=== PATIENT | male | born 1975 | race Caucasian/White ===

== ENCOUNTER → 2017-11-05 11:19 | Outpatient (CLI) | payer BC, SELFPAY ==
[2017-11-05 15:59] LABS: T4 Free Direct 0.88 ng/dL (0.76-1.46); Thyroid Stim Hormone (TSH) 1.99 uIU/mL (0.358-3.74)
[2017-11-05 16:11] LABS: Hemoglobin A1c 5.2 % (4.2-6.3)
== END ==
PROVIDERS: Family Provider Family Medicine; PCP Family Medicine; Visit Provider Family Medicine
DX: F41.9 Anxiety disorder, unspecified (principal); R73.01 Impaired fasting glucose
CPT/HCPCS: 36415; 83036; 84439; 84443

== ENCOUNTER 2018-11-28 14:33 | Emergency (ER) | payer BC, SELFPAY ==
[2018-11-28 14:34] VITALS: BP 170/98; PULSE 91; PULSE 94; RESP 16; RESP 19; TEMP 36.8; O2SAT 97; BMI 43.4
[2018-11-28 14:41] VITALS: O2SAT 97
--- NOTE | 2018-11-28 14:59 | EKG12_ITS ---
Test Reason : SOB Blood Pressure : / mmHG Vent. Rate : 087 BPM Atrial Rate : 087 BPM P-R Int : 142 ms QRS Dur : 080 ms QT Int : 352 ms P-R-T Axes : 040 015 043 degrees QTc Int : 423 ms Normal sinus rhythm Normal ECG Confirmed by STEPHANIE POP, BILLY ([id number]), field map editor GISELLE MAXWELL ([id number]) on 12/01/2018 11:16:43 AM Referred By: ROCAEL Confirmed By:BILLY BROWN MD
--- NOTE | 2018-11-28 15:00 | ED.VIS.GEN ---
History of Present Illness Chief Complaint: Shortness of Breath Informant: Patient Onset: Today, Yesterday Context: Sudden Onset Timing: Intermittent Quality: Difficulty breathing through nose, dizziness Location: occurred at work Current Severity: The dizziness has resolved,. Shortness of breath has improved and read narrative Maximum Severity: Moderate Worsened by: Patient not able to attribute anything making his symptoms worse Relieved by: With regards to breathing nothing, closing eyes and putting head down dizz Associated Symptoms: Change in vision Narrative: Patient is a 43-year-old gentleman who presents with shortness of breath and dizziness. Patient's definition of shortness of breath or difficulty breathing through his nose. He reports that he was diagnosed with bronchitis and had bronchitis for 6 weeks. Patient's definition of dizziness is lightheadedness, spinning, and change in vision. Patient denied double vision. He denies nausea or vomiting with the dizziness. He denies maroon, melena or blood in stool. He reports no vomiting the last 48-72 hours. He denies headache. He denies ringing in his ears, decreased hearing or pain in his ears. He denies difficulty with speech or swallowing. He denies paresthesia, anesthesia or motor weakness upper or lower extremity. Patient's blood pressure is elevated. He apparently is been told for several years that his pressure is up and you do not want to be on blood pressure meds . Prior similar symptoms: Yes - 2014 Recent Illness/Hospitalization: No Past Medical History - Allergies and Home Meds Allergies/Adverse Reactions: Allergies amoxicillin [Amoxicillin] Allergy (Verified 11/28/18 14:37) Hives Penicillins Allergy (Verified 11/28/18 14:37) Hives Primary Care Physician: Modesto Wilks MD [Primary Care Provider] - Prior records reviewed: Yes - prior visit 2014 with similar complaints. Surgical History: no surgical history Lives: Spouse/ Significant Other, With Family Smoking Status: Never smoker Drugs: None Review of Systems Eyes: Reports: Visual changes - bilaterally. Denies: Blurred vision - left, Blurred vision - right, Blurred Vision - bilaterally, Diplopia, -, - ENT: Denies: Bilateral ear pain, Rhinorrhea, Sore throat Cardiovascular: Denies: Chest pain, Palpitations Respiratory: Reports: Dyspnea. Denies: Cough, Dyspnea on exertion, Orthopnea, Paroxysmal nocturnal dyspnea Gastrointestinal: Denies: Abdominal pain, Nausea, Vomiting, Diarrhea, Melena, Hematochezia Musculoskeletal: Denies: Myalgias, Arthralgias, Neck pain, Back pain, Extremity Pain Skin: Denies: Rash, Wounds Neurological: Denies: Headache, Weakness, Parasthesia, Numbness Endocrine: Denies: Polyuria, Polydipsia Physical Exam Vital Signs/Narrative: Vital Signs Temp Pulse Resp BP Pulse Ox 11/28/18 14:34 98.3 F 94 19 H 170/98 H 97 Inital Vital Signs reviewed: Yes General: Well nourished, Well developed, Obese - BMI is 43.4., No Acute Distress Head: Normocephalic, Atraumatic Eyes: Perrl, EOMI, - - Funduscopic exam reveals normal cup-to-disc ratio. There is no papilledema. There is AV nicking noted.. Negative for: Pale conjunctiva, Scleral icterus ENT: Moist mucous membranes, No rhinorrhea, TM's clear, - - Nasal mucosa is pale and grayish consistent with allergic rhinitis. Neck: Supple, Nontender, No lymphadenopathy, No JVD - No carotid bruits noted. Trachea is midline. Cardiovascular: Regular rate, Regular rhythm, No murmurs, Normal S1, Normal S2 Respiratory: No distress, CTA bilaterally, Chest nontender Abdomen: Soft, Nontender, Nondistended, Normal bowel sounds Back: Nontender, Normal Inspection Extremities: Nontender, No edema. Negative for: Calf Tenderness Skin: Normal color, No rash Neurological: Alert, Oriented x3, Cranial nerves II-XII grossly intact, Normal Strength, Normal Sensation, Normal DTR - DTRs are 1+ upper and lower extremity and symmetric. There is no clonus or Babinski sign. Richmond-Hallpike maneuver was negative. The eye Katherine test was negative. The HINT test is negative. Psychological: Normal affect Diagnostic/Tx/Re-eval Laboratory Results 11/28/18 11/28/18 11/28/18 15:20 15:20 15:25 WBC 8.9 RBC 5.33 Hgb 15.9 Hct 45.3 MCV 85.0 MCH 29.8 MCHC 35.1 RDW 13.9 RDW Differential 43.0 Plt Count 210 MPV 11.6 Immature Gran % (Auto) 0.100 Neut % (Auto) 57.2 Lymph % (Auto) 29.3 [place] % (Auto) 10.2 H Eos % (Auto) 3.0 Baso % (Auto) 0.2 Absolute Neuts (auto) 5.1 Absolute Lymphs (auto) 2.61 Total Counted Not Reportable Sodium 138 Potassium 3.7 Chloride 105 Carbon Dioxide 28.0 Anion Gap 5 BUN 12 Creatinine 0.94 Estim Creat Clear Calc 110.15 Est GFR (MDRD) Af Amer 113 Est GFR (MDRD) Non-Af 93 BUN/Creatinine Ratio 12.7 Glucose 90 Calcium 8.6 Urine Color Yellow Urine Clarity Sl. Cloudy Urine pH 6.5 Ur Specific [place] 1.015 Urine Protein Negative Urine Glucose (UA) Normal Urine Ketones Negative Urine Occult Blood Negative Urine Nitrite Negative Urine Bilirubin Negative Urine Urobilinogen Normal Ur Leukocyte Esterase Negative Urine RBC 0 SEEN Urine WBC 0 SEEN Ur Squamous Epith Cells 0-5 SEEN Urine Bacteria 0 SEEN Urine Mucus 0 SEEN - EKG Initial EKG Interpretation: Sinus Rhythm - Ventricular rate is 87. NM interval, Q jewish, QT interval and axis are normal. - Medical Decision Making Based on patient's history of spinning, change in vision and improvement with closing eyes and resting head and remaining still suspect patient had paroxysmal benign positional vertigo at work x2. Because of the elevated blood pressure and AV nicking noted on funduscopic exam will obtain blood work to assess for endorgan injury. EKG was obtained per protocol which reveals a normal sinus rhythm with a ventricular rate of 87 and no evidence of LVH. Since there is no evidence of endorgan injury will discharge with prescription for lisinopril. He has been instructed to follow-up with his primary care physician for blood pressure check in 2 weeks. ED Disposition - Plan for ED Patient: Disposition: Home or Assisted Living Diagnosis: Hypertension, benign, Allergic rhinitis, Benign paroxysmal positional vertigo Instructions: ED Hypertension New Begin Tx, ED Allergy Nasal Prescriptions: Lisinopril 5 mg PO DAILY #30 tab Fluticasone 0.05% [Flonase Nasal [place]] 1 spray NASAL BID #1 bottle Referrals: Modesto Wliks MD [Primary Care Provider] - 1-2 Weeks
[2018-11-28 15:29] LABS: Absolute Lymphocyte Count 2.61 X10^3/ul (0.83-4.51); Absolute Neutrophil Count 5.1 X10^3/uL (2.0-7.7); Basophil# 0.02 X10^3/uL; Basophil% 0.2 % (0-1); Eosinophil# 0.27 X10^3/uL; Hematocrit 45.3 % (40-54); Hemoglobin 15.9 g/dl (13.0-16.5); Lymphocyte # 2.61 X10^3/ul (4.0); Lymphocyte % 29.3 % (19-41); Mean Corp Hgb Conc 35.1 g/gl (32-36); Mean Corpuscular Hgb 29.8 pg (27.0-32.0); Mean Platelet Vol. 11.6 fl (6.2-12.0); Monocyte# 0.91 X10^3/uL; Monocyte% 10.2 % (0-10); Neutrophil # 5.08 X10^3/uL (2.7-7.7); Neutrophil % 57.2 % (47-70); Platelet Count 210 K/mm3 (150-450); RBC Distribution Width CV 13.9 % (11.6-14.6); Red Blood Count 5.33 M/mm3 (4.6-6.2); White Blood Count 8.9 K/mm3 (4.4-11.0)
[2018-11-28 15:32] LABS: POSITIVE COUNT NO; POSITIVE DIFFERENTIAL NO; POSITIVE MORPHOLOGY NO
[2018-11-28 15:37] LABS: Bacteria 0 SEEN /hpf (None Seen); Mucous, Urine 0 SEEN /hpf (<or=2+); Red Blood Cells-Urine 0 SEEN /hpf (0-5); White Blood Cells 0 SEEN /hpf (0-5)
[2018-11-28 15:41] LABS: Anion Gap 5 (5-15); BUN 12 mg/dL (7-18); BUN/Creat Ratio 12.7 RATIO (10-20); Calcium,Total 8.6 mg/dL (8.5-10.1); Chloride 105 mmol/L (98-107); Creatinine, Serum 0.94 mg/dL (0.70-1.30); EST Glomerular Filtration Rate 93 mL/min (>60); Est Glom Filt Rate - Afr Amer 113 mL/min (>60); Estimated Creatinine Clearance 110.15 ml/min; Glucose 90 mg/dL (74-106); Potassium 3.7 mmol/L (3.5-5.1); Sodium Level 138 mmol/L (136-145)
[2018-11-28 16:02] LABS: Color, Urine Yellow (Yellow); Glucose, Dipstick Normal (Normal); Ketone-Dipstick Negative (Negative); Leukocyte Esterase-Dipstick Negative /ul (Negative); Nitrite-Dipstick Negative (Negative); Occult Blood-Urine Negative /ul (Negative); Protein-Dipstick Negative (Negative); Specific Gravity, Urine 1.015 (1.002-1.030); Urine Bilirubin Dipstick Negative (Negative); Urine Clarity Sl. Cloudy (Clear); Urine Urobilinogen Normal (Normal); Urine pH 6.5 (5.0 - 8.0)
[2018-11-28 16:06] LABS: Squamous Epithelial Cells - UA 0-5 SEEN /hpf (0-5)
[2018-11-28 16:24] VITALS: BP 133/86; PULSE 84; RESP 16; O2SAT 96
[2018-11-28 17:06] VITALS: BP 125/79; PULSE 80; RESP 25; O2SAT 98
== END 2018-11-28 17:06 | disposition home or self-care (01) ==
PROVIDERS: Emergency Provider Emergency Medicine; Family Provider Family Medicine; PCP Family Medicine
DX: I10 Essential (primary) hypertension (principal); J30.9 Allergic rhinitis, unspecified; H81.10 Benign paroxysmal vertigo, unspecified ear
CPT/HCPCS: 80048; 81001; 85025; 93005; 99284; A4216

== ENCOUNTER 2019-03-09 22:17 | Emergency (ER) | payer BC, SELFPAY ==
[2019-03-09 22:17] VITALS: BP 135/81; PULSE 119; RESP 18; TEMP 37.8; O2SAT 97; BMI 42.2
[2019-03-09 22:46] LABS: Absolute Lymphocyte Count 0.86 X10^3/ul (0.83-4.51); Absolute Neutrophil Count 3.1 X10^3/uL (2.0-7.7); Basophil# 0.02 X10^3/uL; Basophil% 0.4 % (0-1); Eosinophil# 0.03 X10^3/uL; Eosinophils% 0.7 % (0-5); Hematocrit 39.2 % (40-54); Hemoglobin 13.8 g/dl (13.0-16.5); Lymphocyte # 0.86 X10^3/ul (4.0); Lymphocyte % 18.9 % (19-41); Mean Corp Hgb Conc 35.2 g/gl (32-36); Mean Corpuscular Hgb 27.8 pg (27.0-32.0); Monocyte# 0.55 X10^3/uL; Monocyte% 12.1 % (0-10); Neutrophil # 3.06 X10^3/uL (2.7-7.7); Neutrophil % 67.5 % (47-70); Platelet Count 205 K/mm3 (150-450); RBC Distribution Width SD 39.7 fl (35.1-43.9); Red Blood Count 4.96 M/mm3 (4.6-6.2); White Blood Count 4.5 K/mm3 (4.4-11.0)
[2019-03-09 22:53] LABS: POSITIVE COUNT NO; POSITIVE DIFFERENTIAL NO; POSITIVE MORPHOLOGY NO
[2019-03-09 22:59] LABS: Anion Gap 6 (5-15); BUN 9 mg/dL (7-18); Calcium,Total 8.6 mg/dL (8.5-10.1); Chloride 97 mmol/L (98-107); Creatinine, Serum 1.13 mg/dL (0.70-1.30); EST Glomerular Filtration Rate 76 mL/min (>60); Est Glom Filt Rate - Afr Amer 92 mL/min (>60); Glucose 122 mg/dL (74-106); Potassium 3.6 mmol/L (3.5-5.1); Sodium Level 130 mmol/L (136-145)
[2019-03-09 23:19] LABS: Bacteria 0 SEEN /hpf (None Seen); Mucous, Urine 0 SEEN /hpf (<or=2+); Red Blood Cells-Urine 0 SEEN /hpf (0-5); Squamous Epithelial Cells - UA 0 SEEN /hpf (0-5); White Blood Cells 0 SEEN /hpf (0-5)
[2019-03-09 23:24] VITALS: BP 133/73; PULSE 111; RESP 18; TEMP 37.4; O2SAT 97
[2019-03-09 23:25] LABS: Color, Urine Yellow (Yellow); Glucose, Dipstick Normal (Normal); Ketone-Dipstick Negative (Negative); Leukocyte Esterase-Dipstick Negative /ul (Negative); Nitrite-Dipstick Negative (Negative); Occult Blood-Urine Negative /ul (Negative); Protein-Dipstick Negative (Negative); Urine Bilirubin Dipstick Negative (Negative); Urine Clarity Clear (Clear); Urine Urobilinogen Normal (Normal); Urine pH 6.5 (5.0 - 8.0)
[2019-03-09 23:42] LABS: Transitional Epithelial - Ur 0-5 SEEN /hpf (0-5)
--- NOTE | 2019-03-10 00:16 | CT_ITS ---
STUDY: CT ABDOMEN AND PELVIS WITH CONTRAST REASON FOR EXAM: Male, 44 years old. Abdomen pain. Diarrhea RADIATION DOSAGE (If Supplied By Facility): CTDIvol = ( 20.40 ) mGy, DLP = ( 1382.61 ) mGycm TECHNIQUE: Transaxial images were obtained from the dome of the diaphragm to the symphysis pubis without oral contrast. 100 IV Isovue 300 was administered. Sagittal and coronal images were reconstructed. Individualized dose optimization techniques were used for this CT. COMPARISON: None. FINDINGS: The visualized lung bases are unremarkable. The visualized portions of the heart are within normal limits. Normal liver. Normal gallbladder and extrahepatic biliary system. Normal spleen. Normal pancreas. Normal bilateral adrenal glands. Normal right kidney. Normal left kidney. Normal visualized stomach. Normal small intestine. There are multiple colonic diverticula consistent with diverticulosis. The appendix is visualized and appears normal. Normal abdominal aorta. Normal inferior vena cava. Normal retroperitoneum. Normal urinary bladder. There is a small umbilical hernia containing fat. Normal osseous structures. CT/Abdomen/Pelvis WITH Contrast IMPRESSION: Colon diverticulosis. Electronically Signed: Rama Perry, at 3:05 EDT Tel , Service support ,
--- NOTE | 2019-03-10 00:17 | ED.DCSUM_ITS ---
- ER Visit Summary Date of Service: 03/10/19 Chief Complaint: Fever History of Present Illness: The patient is a 44 M who presents with a fever. This been about 1-1/2 weeks ever since March 01. He has had temperatures of 103 and sweats. He also complains of diffuse body aches. He complains of mild headache. Complains of nausea dry heaving and diarrhea. He also has had some mild intermittent vague lower abdominal pain. He does not have this currently. He has seen his primary care physician and also been seen in urgent care. He had a normal chest x-ray. It sounds like his symptoms were attributed to a self-limiting illness. However he has not been improving and today also developed a rash over his body and lower back. Physical Examination: Heart rate 111 temperature 99.3 Moist mucous membranes Heart regular tachycardia Lungs clear Abdomen soft nontender nondistended Alert Patient has a macular rash over the torso extremities and back blanching, no petechiae no purpura rash is nonspecific Test Results: CBC CMP lipase notable for mild elevations of ALT at 93 and AST at 69. Urinalysis normal. Sodium 130. Acetaminophen 4.5. CT of the abdomen and pelvis shows colonic diverticulosis. Emergency Department Course and Treatment: Work-up as above. Although CT does not show inflammatory changes given that he does have diverticulosis with diarrhea lower abdominal pain and fever we will treat for possible diverticulitis. He was given prescriptions for Cipro and Flagyl. I explained to him I am unsure of the etiology of his rash. Do not see an indication for hospitalization. I did advise that if he does not improve he may need further outpatient work-up. He understands to return for new or worsening symptoms and was instructed on signs and symptoms to monitor for. Treatment Plan: [] Disposition: Discharge Impression: Diverticulitis This note was generated with ThermalTherapeuticSystems[employer] software. It may contain incorrect words, spelling, and punctuation that were not noted in review of the chart prior to signing ED Disposition - Plan for ED Patient: Referrals: Modesto Wilks MD [Primary Care Provider] -
[2019-03-10 00:39] LABS: AST(SGOT) 62 U/L (15-37); Alanine Aminotransfer ALT/SGPT 93 U/L (16-61); Albumin, Serum 3.2 g/dL (3.2-5.0); Alkaline Phosphatase 87 U/L (45-117); Bilirubin, Direct 0.23 mg/dL (0.00-0.30); Globulin 3.6 g/dL (2.2-4.2); Protein, Total 6.8 g/dL (6.4-8.2)
[2019-03-10 00:42] LABS: Lipase 102 U/L (73-393)
[2019-03-10 01:12] LABS: Acetaminophen (Tylenol) Level 4.5 ug/mL (10.0-30.0)
[2019-03-10 01:18] VITALS: BP 128/73; PULSE 94; RESP 20; TEMP 37.4; O2SAT 99
[2019-03-10 02:00] VITALS: BP 124/67; PULSE 87; RESP 19; TEMP 36.8; O2SAT 97
[2019-03-10 03:00] VITALS: BP 130/78; PULSE 83; RESP 19; TEMP 36.9; O2SAT 96
[2019-03-10 03:23] VITALS: BP 132/76; PULSE 76; RESP 18; O2SAT 95
--- NOTE | 2019-03-10 03:39 | ED.DEP ---
ED Disposition - Plan for ED Patient: Instructions: Diverticulitis Prescriptions: Ciprofloxacin [Cipro] 500 mg PO BID #20 tab Prescription Printed metroNIDAZOLE [Flagyl] 500 mg PO Q8H #28 tab Prescription Printed Referrals: Modesto Wilks MD [Primary Care Provider] -
[2019-03-10 03:44] VITALS: BP 130/85; PULSE 84; RESP 16; O2SAT 99
== END 2019-03-10 03:44 | disposition home or self-care (01) ==
PROVIDERS: Emergency Provider Emergency Medicine; Family Provider Family Medicine; PCP Family Medicine
DX: K57.32 Diverticulitis of large intestine without perforation or abscess without bleeding (principal); R21 Rash and other nonspecific skin eruption; R51 Headache
CPT/HCPCS: 74177; 80048; 80076; 80329; 81001; 83690; 85025; 87040; 99283; Q9967; G0480

== ENCOUNTER → 2019-11-17 12:57 | Outpatient (CLI) | payer BC, SELFPAY ==
--- NOTE | 2019-11-17 13:18 | RAD_ITS ---
STUDY: X-RAY CHEST REASON FOR EXAM: Male, 44 years old. SOB, CP. HX PNEUMONIA TECHNIQUE: PA and lateral views of the chest. COMPARISON: None. FINDINGS: The lungs are clear and expanded. Scattered calcified granulomas. There is no demonstrated pleural abnormality. Normal size heart. Normal mediastinum and ashlie. Normal visualized pulmonary arteries. Normal visualized aortic arch and descending thoracic aorta. Normal visualized thoracic spine. Normal visualized ribs, clavicles, and shoulders. There is no demonstrated abnormality of the visualized soft tissue structures of the upper abdomen. RAD/Chest PA and Lateral IMPRESSION: Scattered calcified granulomas. No acute abnormality is seen. Electronically Signed: Leo Mandel, at 13:48 EDT , Service support ,
== END ==
PROVIDERS: PCP Family Medicine; Referring Provider Family Medicine; Visit Provider Family Medicine
DX: R06.02 Shortness of breath (principal); R07.9 Chest pain, unspecified
CPT/HCPCS: 71046

== ENCOUNTER → 2020-05-19 10:34 | Outpatient (CLI) | payer BC, SELFPAY | PROVIDERS: PCP Family Medicine; Referring Provider Family Medicine; Visit Provider Family Medicine | DX: R05 Cough (principal) | CPT/HCPCS: 87635; C9803; U0003 ==

== ENCOUNTER → 2020-07-20 09:05 | Outpatient (CLI) | payer BC, SELFPAY | PROVIDERS: PCP Family Medicine; Referring Provider Family Medicine; Visit Provider Family Medicine | DX: Z03.818 Encounter for observation for suspected exposure to other biological agents ruled out (principal) | CPT/HCPCS: 87635; C9803; U0003 ==

== ENCOUNTER → 2020-08-12 17:37 | Outpatient (CLI) | payer BC, SELFPAY | PROVIDERS: PCP Family Medicine; Referring Provider Family Medicine; Visit Provider Family Medicine | DX: Z20.828 Contact with and (suspected) exposure to other viral communicable diseases (principal) | CPT/HCPCS: 87635; C9803; U0003 ==

== ENCOUNTER → 2020-09-14 09:34 | Outpatient (CLI) | payer BC, SELFPAY | PROVIDERS: PCP Family Medicine; Visit Provider Family Medicine | DX: N39.0 Urinary tract infection, site not specified (principal) | CPT/HCPCS: 87086 ==

== ENCOUNTER → 2020-10-31 14:39 | Outpatient (CLI) | payer OTHER, SELFPAY ==
[2020-10-31 17:21] LABS: Absolute Neutrophil Count 4.5 X10^3/uL (2.0-7.7); Basophil# 0.03 X10^3/uL; Basophil% 0.4 % (0-1); Eosinophil# 0.07 X10^3/uL; Eosinophils% 0.9 % (0-5); Hematocrit 51.5 % (40-54); Hemoglobin 16.9 g/dL (13.0-16.5); Mean Corp Hgb Conc 32.8 g/dL (32-36); Mean Corpuscular Hgb 28.2 pg (27.0-32.0); Mean Platelet Vol. 12.9 fl (6.2-12.0); Monocyte# 0.65 X10^3/uL; Monocyte% 8.2 % (0-10); NRBC Flagged by Analyzer 0 % (0-5); Neutrophil # 4.47 X10^3/uL (2.7-7.7); Neutrophil % 56.4 % (47-70); Platelet Count 257 K/mm3 (150-450); RBC Distribution Width CV 13.4 % (11.6-14.6); RBC Distribution Width SD 42.3 fl (35.1-43.9); Red Blood Count 5.99 M/mm3 (4.6-6.2); White Blood Count 7.9 K/mm3 (4.4-11.0)
[2020-10-31 17:28] LABS: Hemoglobin A1c 4.8 % (3.8-5.6)
[2020-10-31 17:35] LABS: ALB/GLOB Ratio 1.1 RATIO (0.9-2.4); AST(SGOT) 21 U/L (15-37); Alanine Aminotransfer ALT/SGPT 41 U/L (16-61); Alkaline Phosphatase 88 U/L (45-117); Anion Gap 4 (5-15); BUN 12 mg/dL (7-18); BUN/Creat Ratio 12.2 RATIO (10-20); Calcium,Total 8.7 mg/dL (8.5-10.1); Chloride 105 mmol/L (98-107); Creatinine, Serum 0.98 mg/dL (0.70-1.30); EST Glomerular Filtration Rate 88 mL/min (>60); Est Glom Filt Rate - Afr Amer 106 mL/min (>60); Globulin 3.5 g/dL (2.2-4.2); Glucose 71 mg/dL (74-106); Protein, Total 7.5 g/dL (6.4-8.2); Sodium Level 139 mmol/L (136-145); Thyroid Stim Hormone (TSH) 1.88 uIU/mL (0.358-3.74)
== END ==
PROVIDERS: PCP Family Medicine; Visit Provider Family Medicine
DX: I10 Essential (primary) hypertension (principal); R73.01 Impaired fasting glucose; F41.9 Anxiety disorder, unspecified
CPT/HCPCS: 36415; 80053; 83036; 84443; 85025

== ENCOUNTER → 2020-12-08 09:06 | Outpatient (CLI) | payer OTHER, SELFPAY | PROVIDERS: PCP Family Medicine; Visit Provider Family Medicine | DX: R00.2 Palpitations (principal); I10 Essential (primary) hypertension; F41.9 Anxiety disorder, unspecified | CPT/HCPCS: 93225; 93226 ==

== ENCOUNTER 2021-10-05 11:00 | Outpatient (CLI) | payer OTHER, SELFPAY | END 2021-10-05 23:59 | disposition home or self-care (01) | PROVIDERS: PCP Family Medicine; Referring Provider Family Medicine; Visit Provider Family Medicine | DX: G47.10 Hypersomnia, unspecified (principal); R06.83 Snoring | CPT/HCPCS: 95806 ==

== ENCOUNTER → 2021-12-14 | Outpatient (CLI) | payer OTHER, SELFPAY ==
--- NOTE | 2021-12-14 15:31 | MRI_ITS ---
EXAM: MR HEAD WITHOUT AND WITH INTRAVENOUS CONTRAST, INTERNAL AUDITORY CANAL PROTOCOL CLINICAL INDICATION: HEARING LOSS, TINNITUS LEFT EAR TECHNIQUE: Multiplanar and multisequence MR images of the internal auditory canal were obtained without and with intravenous contrast. Magnetic field strength 1.5 T. This report was created using [employer] report generation technology. CONTRAST: IV 25CC DOTAREM COMPARISON: None. FINDINGS: CRANIAL NERVES: Unremarkable. No mass. No abnormal enhancement. COCHLEA AND SEMICIRCULAR CANALS: Unremarkable. CEREBELLOPONTINE ANGLES: Unremarkable. No mass. BRAIN AND EXTRA-AXIAL SPACES: Unremarkable as visualized. No intra- or extra-axial hemorrhage. No intracranial mass or mass effect. There is preservation of the isbell/white matter interface. Posterior fossa structures are unremarkable. Ventricles are appropriate for age. No hydrocephalus. Basal cisterns are patent. BONES/JOINTS: Unremarkable. No discrete lytic or blastic abnormalities. SINUSES: Small retention cyst left maxillary sinus. MASTOID AIR CELLS: Unremarkable as visualized. Clear. ORBITS: Unremarkable as visualized. Both globes, extraocular muscles, optic nerves and retrobulbar fat appear unremarkable. MRI/Brain W/WO Contrast IMPRESSION: No acute findings in the internal auditory canal. Electronically Signed: Miko George MD at 4:03 EDT ,
== END | disposition home or self-care (01) ==
PROVIDERS: PCP Family Medicine; Visit Provider Otolaryngology Otolaryngology/Facial Plastic Surgery
DX: H91.90 Unspecified hearing loss, unspecified ear (principal)
CPT/HCPCS: 70553; A9575

== ENCOUNTER → 2021-12-28 | Outpatient (CLI) | payer OTHER, SELFPAY | END | disposition home or self-care (01) | LOC: SL 10:12 | PROVIDERS: PCP Family Medicine; Visit Provider Family Medicine | DX: Z00.00 Encounter for general adult medical examination without abnormal findings (principal) ==

== ENCOUNTER 2023-06-18 11:45 | Outpatient (CLI) | payer OTHER, SELFPAY | END 2023-06-18 23:59 | disposition home or self-care (01) | LOC: LAB 11:47 | PROVIDERS: PCP Family Medicine; Referring Provider Urology; Visit Provider Urology | DX: Z12.5 Encounter for screening for malignant neoplasm of prostate (principal) | CPT/HCPCS: 36415; 84153; G0103 ==

== ENCOUNTER → 2023-09-25 | Outpatient (CLI) | payer BC, SELFPAY ==
--- OUTSIDE RECORDS SUMMARY | 2023-09-25 12:15 | XMS RPT_ITS | CCD ---
Author Name Unknown Address [address] [place] [address] [address] [address] [place] [id number] Organization [facility] Care Team Providers Care Api Architect Name Role Phone MERON SHETTY Primary Care Unavailable JAVON CAMERON Referring Unavailable MERON SHETTY Primary Care Unavailable Allergies Allergy Classification Reported Allergen(s) Allergy Type Date of Onset Reaction(s) Facility (1 source) Penicillins; Translations: [PENICILLINS] Propensity to adverse reactions to drug (disorder) 0 [facility] Repository Problems Problem Classification Problem Date Documented Da te Episodic/Chronic Other connective tissue disease (1 source) Pain in left leg; Translations: [Leg pain, left] Onset: 09-23-2023 Episodic Results Test Name Value Interpretation Reference Range Facil ity Encounters Encounter Date Encounter Type Care Provider Facility Start: 09-23-2023 End: 09-23-2023 ambulatory MERON SHETTY Facility:[facility] Start: 09-23-2023 End: 09-23-2023 ambulatory MERON SHETTY Facility:[facility] Payers Date Payer Category Payer Unknown [id number] Progress note 09-23-2023 Note Date & Type Note Facility 09-23-2023 Note HNO ID: [id number] Author: JAVON FRAUSTO RDMS Service: ? Author Type: Route Specialist Type: Progress Notes Filed: 09/23/2023 14:51 Note Text: Radiology Service Progress Note PATIENT NAME: Mindi Mead DATE OF SERVICE: September 23, 2023 TIME: 2:50 PM PATIENT IDENTITY VERIFICATION COMPLETED USING TWO (2) IDENTIFIERS: Name and Date of confirmed by patient verbally. FALL SCREENING: Has the patient had 2 falls in the last year or 1 fall with injury or currently using an Ambulatory Assistive Device (Walker, Cane, Wheelchair, Crutches, etc.)? No PATIENT GENDER DATA: Male PATIENT RELEVANT IMPLANT DATA REVIEWED: Not Applicable PATIENT PRESENTS WITH AN IMPLANTABLE OR ATTACHED GLUE LINE OPERATOR: No RADIOLOGY DEPARTMENT: Ultrasound PERIPHERAL IV DATA: Not applicable SIGNED BY: Javon Frausto RDMS RVT September 23, 2023 2:50 PM [facility] Progress note 09-23-2023 Note Date & Type Note Facility 09-23-2023 Note HNO ID: [id number] Author: JAVON CAMERON APRN.LAYOUT ARTIST Service: ? Author Type: Nurse Practitioner Type: Progress Notes Filed: 09/23/2023 15:36 Note Text: This note was created using [employer]. Subjective Mindi Mead is a 48 year old male. 48 year old male with PMH of GERD, anxiety and urinary frequency presents today with acute onset left calf pain. He was walking up the stairs and suddenly felt like his left calf was going to give out. Has since been experiencing 9/10 sharp left calf pain with movement. Pertinent positives include unilateral calf pain with movement and states pants are tighter on that leg. Pertinent negatives include injury or trauma to lower extremity, fever, body aches, skin color changes, dyspnea, chest pain, and dizziness. States he is physically active at this job and denies recent sedentary lifestyle, recent travel, and history of blood clots. Musculoskeletal Problem This is a new problem. The current episode started today. The problem occurs intermittently (with movement). The problem has been unchanged. Pertinent negatives include no arthralgias, chest pain, chills, fever, joint swelling, numbness, rash, visual change or weakness. The symptoms are aggravated by walking. He has tried nothing for the symptoms. No past medical history on file. PAST SURGICAL HISTORY Procedure Laterality Date TONSILLECTOMY HX ALLERGIES Penicillins MEDICATIONS citalopram (CELEXA) 40 mg tablet take 1 tablet by mouth once daily at night oxybutynin ER (DITROPAN XL) 15 mg 24 hr Extended Rel Tab Take 15 mg by mouth once daily. multivit-min/ferrous fumarate (MULTI VITAMIN ORAL) Take by mouth. famotidine (PEPCID) 20 mg tablet Take 20 mg by mouth twice daily. fexofenadine HCl (BIRGIT ORAL) Take by mouth. predniSONE (DELTASONE) 10 mg tablet Take 4 tabs daily for 3 days, then 2 tabs daily for 3 days, then 1 tab daily for 3 days with food. cyclobenzaprine (FLEXERIL) 10 mg tablet Take 1 tablet by mouth three times a day as needed for muscle spasm. lisinopril (ZESTRIL, PRINIVIL) 5 mg tablet Take 5 mg by mouth once daily. (Patient not taking: Reported on 02/15/2021 ) Chlorhexidine Gluconate (PERIDEX) 0.12 % solution Use 15 mL as instructed twice daily. Rinse around mouth for 30 seconds then expectorate (Patient not taking: Reported on 05/25/2021 ) naproxen (NAPROSYN) 500 mg tablet Take 1 tablet by mouth twice daily as needed (pain/inflammation, take with food.). (Patient not taking: Reported on 05/25/2021 ) fluticasone (FLONASE) 50 mcg/actuation nasal spray Use 2 Sprays in each nostril once daily. Rinse mouth after use. (Patient not taking: Reported on 02/15/2021 ) benzonatate (TESSALON PERLE) 100 mg capsule Take 2 capsules by mouth three times daily as needed. (Patient not taking: Reported on 03/02/2019 ) Qgitowiewrgkmxb-Utjufonec-IN (BROMFED DM) 2-30-10 mg/5 mL syrup Take 10 mL by mouth four times daily as needed. (Patient not taking: Reported on 09/07/2018 ) albuterol HFA (VENTOLIN HFA) 90 mcg/actuation inhaler Inhale 2 Puffs as instructed every 4 hours as needed for Wheezing/Shortness of Breath. (Patient not taking: Reported on 03/02/2019 ) triamcinolone acetonide (KENALOG) 0.1 % cream Apply 1 application to affected area twice daily. (Patient not taking: Reported on 05/27/2018 ) sertraline (ZOLOFT) 50 mg tablet Take 1 tablet by mouth once daily. (Patient not taking: Reported on 05/27/2018 ) LORazepam (ATIVAN) 0.5 mg tab Take 0.5 tablets by mouth once daily as needed. (Patient not taking: Reported on 05/27/2018 ) FAMILY HISTORY Problem Relation Age of Onset Arthritis Mother None Father None Sister Social History Tobacco Use Smoking status: Never Smokeless tobacco: Never Substance Use Topics Alcohol use: No Drug use: No Review of Systems Constitutional: Positive for activity change. Negative for appetite change, chills and fever. Respiratory: Negative for chest tightness and shortness of breath. Cardiovascular: Positive for leg swelling. Negative for chest pain. Musculoskeletal: Negative for arthralgias and joint swelling. Skin: Negative for color change and rash. Neurological: Negative for dizziness, weakness, light-headedness and numbness. Objective BP 148/102 Pulse 105 Temp 36.9 ?C (98.4 ?F) Resp 20 Wt (!) 143.1 kg (315 lb 6.4 oz) SpO2 98% Physical Exam Constitutional: General: He is awake. He is not in acute distress. Appearance: Normal appearance. He is normal weight. He is not ill-appearing, toxic-appearing or diaphoretic. HENT: Head: Normocephalic. Cardiovascular: Rate and Rhythm: Normal rate. Pulmonary: Effort: Pulmonary effort is normal. No tachypnea, bradypnea, accessory muscle usage, prolonged expiration or respiratory distress. Musculoskeletal: General: Tenderness present. No swelling, deformity or signs of injury. Normal range of motion. Cervical back: Normal range of motion. Right (more content not included)... [facility] Summary Purpose Family History No Family History Records Found Advance Directives No Advanced Directives Records Found Additional Source Comments (unrecognized sect ion and content) No Status Records Found INFORMATION SOURCE (unrecogn ized section and content) FOR RECORDS PERTAINING TO PATIENTS WHO ARE OR HAVE BEEN ENROLLED IN A CHEMICAL DEPENDENCY/SUBSTANCEABUSE PROGRAM, SOME INFORMATION MAY BE OMITTED. This clinical summary was aggregated from multiple sources. Caution should be exercised in using it in the provision of clinical care. This summary normalizes information from multiple sources, and as a consequence, information in this document may materially change the coding, format and clinical context of patient data. In addition, data may be omitted in some cases. CLINICAL DECISIONS SHOULD BE BASED ON THE PRIMARY CLINICAL RECORDS. [employer] provides no warranty or guarantee of the accuracy or completeness of information in this document.
[2023-09-25 12:31] LABS: Absolute Lymphocyte Count 2.16 X10^3/uL (0.83-4.51); Basophil# 0.04 X10^3/uL; Basophil% 0.6 % (0-1); Eosinophils% 4.2 % (0-5); Hematocrit 46.9 % (40-54); Hemoglobin 15.5 g/dL (13.0-16.5); Lymphocyte # 2.16 X10^3/ul (0.83-4.51); Lymphocyte % 30.2 % (19-41); Mean Corpuscular Hgb 28.7 pg (27.0-32.0); Mean Corpuscular Volume 86.9 fL (80-94); Mean Platelet Vol. 11.7 fl (6.2-12.0); Monocyte# 0.63 X10^3/uL; Monocyte% 8.8 % (0-10); NRBC Flagged by Analyzer 0 % (0-5); Neutrophil # 3.99 X10^3/uL (2.7-7.7); Neutrophil % 55.8 % (47-70); Platelet Count 211 K/mm3 (150-450); RBC Distribution Width CV 13.6 % (11.6-14.6); RBC Distribution Width SD 42.7 fl (35.1-43.9); White Blood Count 7.2 K/mm3 (4.4-11.0)
[2023-09-25 12:57] LABS: AST(SGOT) 23 U/L (15-37); Alanine Aminotransfer ALT/SGPT 42 U/L (16-61); Albumin, Serum 3.7 g/dL (3.2-5.0); Alkaline Phosphatase 80 U/L (45-117); Anion Gap 3 (5-15); BUN 19 mg/dL (7-18); BUN/Creat Ratio 20.8 RATIO (10-20); Calcium,Total 9.3 mg/dL (8.5-10.1); Chloride 108 mmol/L (98-107); Cholesterol 176 mg/dL (200); Creatinine, Serum 0.91 mg/dL (0.70-1.30); EST Glomerular Filtration Rate 95 mL/min (>60); Est Glom Filt Rate - Afr Amer 115 mL/min (>60); Globulin 3.6 g/dL (2.2-4.2); Glucose 87 mg/dL (74-106); High Density Lipoprotein 37 mg/dL; Potassium 4.1 mmol/L (3.5-5.1); Protein, Total 7.3 g/dL (6.4-8.2); Sodium Level 138 mmol/L (136-145); Triglycerides 141 mg/dL; Very Low Density Lipoprotein 28 mg/dL (5-40)
== END | disposition home or self-care (01) ==
PROVIDERS: PCP Family Medicine; Visit Provider Family Medicine
DX: Z00.00 Encounter for general adult medical examination without abnormal findings (principal); R73.01 Impaired fasting glucose
CPT/HCPCS: 36415; 80053; 80061; 83036; 85025

== ENCOUNTER 2023-12-03 08:05 | Day surgery (SDC) | payer BC, SELFPAY ==
[2023-12-03] MEDS: Lactated Ringers 1,000 ML 15 ML IV (08:25)
[2023-12-03 08:28] VITALS: BP 133/84; PULSE 88; RESP 18; TEMP 36.2; O2SAT 98; BMI 43.0
--- NOTE | 2023-12-03 08:54 | H&P.OPEN ---
HPI - General HPI Narrative MINDI SIDDIQUI, is a 48 M who presents for screening colonoscopy. His last colonoscopy was 10 years ago. He denies any abdominal pain or blood in the stool. No family history of colon cancer. PFSH Medical History (Updated 11/29/23 @ 15:06 by Christal Woodall) Anal fissure Anxiety Bladder disease Contact with and (suspected) exposure to other viral communicable diseases CPAP (continuous positive airway pressure) dependence Depression History of Holter monitoring Loss of hearing Non-smoker Wears contact lenses Home Medications ibuprofen 400 mg tablet 400 mg PO Q6H PRN PRN Fever 03/09/19 [History Last Taken Unknown] citalopram 40 mg tablet 40 mg PO QHS 10/07/23 [History Last Taken 12/01/23] fexofenadine 180 mg tablet (Allergy Relief (fexofenadine)) 180 mg PO DAILY 10/07/23 [History Last Taken 12/01/23] multivitamin 1 tab PO DAILY 10/07/23 [History Last Taken 12/01/23] oxybutynin chloride 15 mg tablet,extended release 24 hr 15 mg PO DAILY 10/07/23 [History Last Taken 12/01/23] Allergy/AdvReac Type Severity Reaction Status Date / Time amoxicillin [Amoxicillin] Allergy Hives Verified 12/03/23 08:23 Penicillins Allergy Hives Verified 12/03/23 08:23 Family History (Updated 10/07/23 @ 10:52 by Marci Valverde) Father Colon cancer, Onset Age: 73 Surgical History (Updated 11/29/23 @ 15:06 by Christal Woodall) Hx of colonoscopy Hx of tonsillectomy Social History (Updated 10/07/23 @ 10:52 by Marci Valverde) current occupational status: employed Smoking Status: Never smoker details: Occasional alcohol substance use type: does not use Past Medical/Surgical History Planned Operation Planned Operative Procedure/s: CSCOPE OA Previous Hospitalizations/Surgeries HX Hospitalizations: No Any Problems With Anesthesia: No You/Your Family Experience Fever (Hyperthermia) With Anes: No Cholinesterase deficiency: No Cardiovascular Hx Heart Attack: No Hx Hypertension: No Respiratory Hx Chronic Obstructive Pulmonary Disease (COPD): No Hx Asthma: No Hx Emphysema: No Hx Sleep Apnea: Yes CPAP: Yes (NONCOMPLIANT) BIPAP: No Hx Respiratory Tract Infection/Cold (presently): No Do You Snore Loudly (louder than talking or can be heard): No Do You Often Feel Tired/ Fatigued/ Sleepy Dring Daytime?: No Has Anyone Observed You Stop Breathing During Sleep?: No Result (for STOP score): Positive Smoking Status: Never smoker Neurological Hx Seizures: No Does patient have nerve stimulator: No Reproduction : No Endocrine Hx Diabetes: No Psycho/Social Hx Substance Use: No Hx Alcohol Use: No Hx Anxiety: No Hx Depression: Yes Miscellaneous Hx Cancer: No Recent Exposure to Contagious Disease: No Allergies amoxicillin [Amoxicillin] Allergy (Verified 12/03/23 08:23) Hives Penicillins Allergy (Verified 12/03/23 08:23) Hives Discharge Is Pt Admitted From a Skilled Nursing, or a Care Home: No After D/C, Where Do you Plan to Go: Return Home Vital Signs Vital Signs Vital Signs: 12/03/23 08:27 12/03/23 08:28 Temperature 97.2 F L Temperature Source Temporal Pulse Rate 88 Respiratory Rate 18 Respiratory Pattern Normal Blood Pressure 133/84 H Blood Pressure Mean 100 Blood Pressure Source Monitor Blood Pressure Position Semi-Fowlers Blood Pressure Location Right Arm Pulse Ox 98 Oxygen Delivery Method Room Air Weight Weight: 309 lb Body Mass Index (BMI) 43.0 Physical Exam Const alert and oriented x3 HEENT normocephalic Eyes PERRL Resp normal respiratory effort and normal air movement Cardio regular rate and regular rhythm GI soft to palpation, non-tender and non-distended Extremity normal to inspection Assessment & Plan Assessment/Plan (1) Encounter for screening for malignant neoplasm of colon: PLAN: I explained endoscopy in detail to the patient. I explained the risks including but not limited to stroke or heart attack with anesthesia, perforation of the GI tract, bleeding, infection. I explained that any of these could necessitate further emergency surgery. The patient understands and all questions were answered sufficiently. The patient wishes to proceed with procedure. Demetrius Gee MD Pager: [facility] [address] [place] [address], [address] [place] [address] Office: Surgery Risks - Colonoscopy Risks Include but are not Limited To: Risks include but are not limited to: Bleeding, perforation requiring further surgery, inability to complete colonoscopy requiring barium enema.
[2023-12-03 09:20] VITALS: BP 133/84; BP 135/119; PULSE 81; RESP 16; TEMP 36.1; O2SAT 94
--- NOTE | 2023-12-03 09:21 | OP.CCLET_ITS ---
12/03/2023 Jelani Franco [address] [place] [address] Re : Colonoscopy procedure for Scott Mead Dear Dr. Franco This procedure was performed on Sunday, December 03, 2023. My impressions and recommendations are as follows: Impressions : - The entire examined colon is normal on direct and retroflexion views. - No specimens collected. Recommendations : - Discharge patient to home. - Resume previous diet. - Continue present medications. - Repeat colonoscopy in 10 years for screening purposes. My findings are described in the full procedure note, which is enclosed. If I can be of further assistance, please feel free to contact me at Doctor phone number(s): , Work: . Sincerely, Demetrius Gee MD 12/03/2023 9:20:17 AM This report has been signed electronically.
--- NOTE | 2023-12-03 09:21 | OP.COLON_ITS ---
Patient Name: Scott Mead Procedure Date: 12/03/2023 8:56 AM Date of : 1975 Age: 48 Procedure: Colonoscopy Indications: Screening for colorectal malignant neoplasm Providers: Demetrius Gee MD Referring MD: Jelani Franco Medicines: Monitored Anesthesia Care Patient Profile: This is a 48 year old male. Refer to note in patient chart for documentation of history and physical. Last Colonoscopy: none. The patient's first colonoscopy is today. Complications: No immediate complications. Procedure: Pre-Anesthesia Assessment: - Prior to the procedure, a History and Physical was performed, and patient medications and allergies were reviewed. The patient's tolerance of previous anesthesia was also reviewed. The risks and benefits of the procedure and the sedation options and risks were discussed with the patient. All questions were answered, and informed consent was obtained. Prior Anticoagulants: The patient has taken no anticoagulant or antiplatelet agents. After reviewing the risks and benefits, the patient was deemed in satisfactory condition to undergo the procedure. After I obtained informed consent, the scope was passed under direct vision. Throughout the procedure, the patient's blood pressure, pulse, and oxygen saturations were monitored continuously. The Colonoscope was introduced through the anus and advanced to the cecum, identified by appendiceal orifice and ileocecal valve. The ileocecal valve, appendiceal orifice, and rectum were photographed. Scope In: 9:07:58 AM Scope Withdrawal Time 0 hours 6 minutes 11 seconds Scope Out: 9:16:31 AM Total Procedure Duration Time 0 hours 8 minutes 33 seconds Findings: The entire examined colon appeared normal on direct and retroflexion views. Impression: - The entire examined colon is normal on direct and retroflexion views. - No specimens collected. Recommendation: - Discharge patient to home. - Resume previous diet. - Continue present medications. - Repeat colonoscopy in 10 years for screening purposes. Procedure Code(s): --- Professional --- 61659, Colonoscopy, flexible; diagnostic, including collection of specimen(s) by brushing or washing, when performed (separate procedure) Diagnosis Code(s): --- Professional --- Z12.11, Encounter for screening for malignant neoplasm of colon CPT copyright 2021 [employer]. All rights reserved. The codes documented in this report are preliminary and upon flow coordinator review may be revised to meet current compliance requirements. Demetrius Gee MD 12/03/2023 9:20:17 AM This report has been signed electronically. Number of Addenda: 0 Note Initiated On: 12/03/2023 8:56 AM
[2023-12-03 09:25] VITALS: BP 107/92; BP 133/84; PULSE 78; RESP 16; O2SAT 94
[2023-12-03 09:30] VITALS: BP 113/82; BP 133/84; PULSE 80; RESP 16; TEMP 36.8; O2SAT 94
[2023-12-03 09:41] VITALS: BP 133/84
== END 2023-12-03 09:54 | disposition home or self-care (01) ==
LOC: EN 08:06 → AC 08:07
PROVIDERS: PCP Family Medicine; Referring Provider Family Medicine; Visit Provider Surgery
PROC: 0DJD8ZZ Inspection of Lower Intestinal Tract, Via Natural or Artificial Opening Endoscopic (ICD-10-PCS; CPT 45378; principal; 2023-12-03 08:55)
DX: Z12.11 Encounter for screening for malignant neoplasm of colon (principal); Z80.0 Family history of malignant neoplasm of digestive organs; F32.A Depression, unspecified; Z79.899 Other long term (current) drug therapy
CPT/HCPCS: 45378; J7120; J2405

== ENCOUNTER → 2024-06-22 | Outpatient (CLI) | payer BC, SELFPAY ==
--- OUTSIDE RECORDS SUMMARY | 2024-06-22 09:18 | XMS RPT_ITS | CCD ---
Author Organization [facility] Care Team Providers Care Fashion Journalist Name Role Phone Marcella Franco DO Primary Care Provider MARCELLA FRANCO Primary Care Unavailable AMBIKA ACHARYA Referring Unavailable MARCELLA FRANCO Primary Care Unavailable MERON SHETTY Primary Care Unavailable JAVON CAMERON Referring Unavailable MERON SHETTY Primary Care Unavailable DR MARCELLA FRANCO DO Primary Care Physician MARILU GOODMAN DPM Attending Unavailable DR MARCELLA FRANCO DO Primary Care Unavailab DR MARCELLA Yanez DO Primary Care UnavailMARILU Roche DPM Attending Unavailable Allergies Allergy Classification Reported Allergen(s) Allergy Type Date of Onset Reaction(s) Facility (3 sources) Penicillins; Translations: [PENICILLINS] Propensity to adverse reactions 05-06-2010 [facility] (2 sources) Penicillin; Translations: [penicillin] Drug Allergy [facility] Medications Current Medications Medication Drug Class(es) Dates Sig (Normalized) Sig (Original) acetaminophen 500 mg oral tablet (2 sources) Start: 05-21-2024 Tylenol Extra Strength 500 mg oral tablet Dose : 1,000 mg = 2 tab(s), Oral, BID, PRN as needed for pain Start Date: 05/21/24 Status: Ordered acetaminophen 325 mg / oxyCODONE hydrochloride 5 mg oral tablet (2 sources) Opioid Agonist Start: 05-21-2024 take 1 tablet by mouth every six hours as needed for pain acetaminophen-oxyC ODONE 325 mg-5 mg oral tablet Dose = 1 tab(s), Oral, q6h, PRN for pain, 0 Refill(s) Start Date: 05/21/24 Status: Ordered [id number] 200 actuat albuterol 0.09 mg/actuat metered dose inhaler (2 sources) beta2-Adrenergic Agonist Start: 05-27-2018 take 2 puff(s) by inhalation every four hours as needed for wheezing albuterol HFA (VENTOLIN HFA) 90 mcg/actuation inhaler Indications: Cough , Bronchitis Inhale 2 Puffs as instructed every 4 hours as needed for Wheezing/Shortness of Breath. 1 Inhaler 05/27/2018 Active Alive Men's Ultra Multivitamin oral tablet (2 sources) Start: 05-21-2024 take 1 tablet by mouth once daily Alive Men's Ultra Multivitamin oral tablet Dose = 1 tab(s), Oral, qDay, 0 Refill(s) Start Date: 05/21/24 Status: Ordered benzonatate 100 mg oral capsule (2 sources) Non-narcotic Antitussive Start: 10-17-2018 take 2 capsules by mouth every eight hours as needed benzonatate (TESSALON PERLE) 100 mg capsule Take 2 capsules by mouth three times daily as needed. 30 capsule 10/17/2018 Active brompheniramine maleate 0.4 mg/ml / dextromethorphan hydrobromide 2 mg/ml / pseudoephedrine hydrochloride 6 mg/ml oral solution (2 sources) alpha-Adrenergic Agonist, Uncompetitive G-hnvfug-[id number]-asparta te Receptor Antagonist, Sigma-1 Agonist Start: 06-15-2018 take 10 mL by mouth four times daily as needed Brompheniramine-Ps eudoeph-DM (BROMFED DM) 2-30-10 mg/5 mL syrup Indications: Acute bronchitis, unspecified organism Take 10 mL by mouth four times daily as needed. 200 mL 06/15/2018 Active chlorhexidine gluconate 1.2 mg/ml mouthwash (2 sources) Start: 02-15-2021 Chlorhexidine Gluconate (PERIDEX) 0.12 % solution Use 15 mL as instructed twice daily. Rinse around mouth for 30 seconds then expectorate 473 mL 02/15/2021 Active citalopram 40 mg oral tablet (6 sources) Serotonin Reuptake Inhibitor Start: 05-21-2024 citalopram 40 mg oral tablet Dose : 40 mg = 1 tab(s), Oral, qHS, 0 Refill(s) Start Date: 05/21/24 Status: Ordered Start: 05-21-2024 citalopram 20 mg oral tablet Dose : 20 mg = 1 tab(s), Oral, qHS, 0 Refill(s) Start Date: 05/21/24 Status: Ordered Start: 09-11-2023 take 1 tablet by dinesh th once daily citalopram (CELEXA) 40 mg tablet take 1 tablet by mouth once daily at night 09/11/2023 Active cyclobenzaprine hydrochloride 10 mg oral tablet (2 sources) Muscle Relaxant Start: 09-23-2023 take 1 tablet by mouth every eight hours as needed cyclobenzaprine (FLEXERIL) 10 mg tablet Take 1 tablet by mouth three times a day as needed for muscle spasm. 18 tablet 09/23/2023 Active famotidine 20 mg oral tablet (2 sources) Histamine-2 Receptor Antagonist take 1 tablet by mouth twice daily famotidine (PEPCID) 20 mg tablet Take 20 mg by mouth twice daily. Active fexofenadine hydrochloride 180 mg oral tablet (4 sources) Histamine-1 Receptor Antagonist Start: 05-21-2024 Candice 24 Hour Allergy oral tablet Dose : 180 mg = 1 tab(s), Oral, Daily Start Date: 05/21/24 Status: Ordered fexofenadine HCl (CANDICE ORAL) Take by mouth. Active fluticasone propionate 0.05 mg/actuat metered dose nasal spray (2 sources) Corticosteroid Start: 05-13-2020 take 2 spray(s) by mouth once daily fluticasone (FLONASE) 50 mcg/actuation nasal spray Indications: Seasonal allergic rhinitis, unspecified trigger Use 2 Sprays in each nostril once daily. Rinse mouth after use. 1 Bottle 05/13/2020 Active lisinopril 5 mg oral tablet (2 sources) Angiotensin Converting Enzyme Inhibitor Start: 10-31-2020 take 1 tablet by mouth once daily lisinopril (ZESTRIL, PRINIVIL) 5 mg tablet Take 5 mg by mouth once daily. 10/31/2020 Active LORazepam 1 mg oral tablet (4 sources) Benzodiazepine Start: 05-21-2024 LORazepam 1 mg oral tablet Dose : 1 mg = 1 tab(s), Oral, q12h, PRN as needed for anxiety, 0 Refill(s) Start Date: 9/26/24 Status: Ordered Start: 11-15-2015 take 0.5 tablet by m outh once daily as needed LORazepam (ATIVAN) 0.5 mg tab Take 0.5 tablets by mouth once daily as needed. 10 tablet 0 11/15/2015 Active multivit-min/ferrous fumarate (MULTI VITAMIN ORAL) (2 sources) multivit-min/aurelio adonay fumarate (MULTI VITAMIN ORAL) Take by mouth. Active naproxen 500 mg oral tablet (2 sources) Nonsteroidal Anti-inflammatory Drug Start : 02-15 take 1 tablet by mouth every twelve hours as needed naproxen (NAPROSYN) 500 mg tablet Take 1 tablet by mouth twice daily as needed (pain/inflammation, take with food.). 20 tablet 02/15/2021 Active 24 hr oxybutynin chloride 15 mg extended release oral tablet (4 sources) Cholinergic Muscarinic Antagonist Start : 05-21 take 1 tablet by mouth every hour, then take 1 tablet by mouth once daily oxybutynin 15 mg/24 hr oral tablet, extended release Dose : 15 mg = 1 tab(s), Oral, qDay, # 30 tab(s), 0 Refill(s) Start Date: 05/21/24 Status: Ordered Start: 01-24-2021 take 1 tablet by dinesh once daily oxybutynin ER (DITROPAN XL) 15 mg 24 hr Extended Rel Tab Take 15 mg by mouth once daily. 01/24/2021 Active predniSONE 10 mg oral tablet (2 sources) Start: 09-23-2023 predniSONE (DELTASONE) 10 mg tablet Take 4 tabs daily for 3 days, then 2 tabs daily for 3 days, then 1 tab daily for 3 days with food. 21 tablet 09/23/2023 Active sertraline 50 mg oral tablet (2 sources) Serotonin Reuptake Inhibitor Start: 11-15-2015 take 1 tablet by mouth once daily sertraline (ZOLOFT) 50 mg tablet Indications: Depression, unspecified depression type Take 1 tablet by mouth once daily. 30 tablet 2 11/15/2015 Active triamcinolone acetonide 1 mg/ml topical cream (2 sources) Corticosteroid Start: 03-08-2017 triamcinolone acetonide (KENALOG) 0.1 % cream Indications: Insect bite, initial encounter Apply 1 application to affected area twice daily. 60 g 03/08/2017 Active Completed/Discontinued Medications Medication Drug Class(es) Dates Sig (Normalized) Sig (Original) hydrALAZINE (1 source) Arteriolar Vasodilator Start: 05-22-2024 End: 05-22-2024 hydrALAZINE Start: 05/22/24 9:56:00 AM EDT, Dose = 10 mg, = 0.5 mL, IV Push, Once, PRN, Other (see order comments), 05/22/24 9:56:00 EDT Start Date: 05/22/24 Stop Date: 05/22/24 Status: Completed Labetalol (1 source) beta-Adrenergic Parul Start: 05-22-2024 End: 05-22-2024 labetalol Start: 05/22/24 9:15:00 AM EDT, Dose = 10 mg, = 2 mL, IV Push, Once, Stop: 05/22/24 9:17:22 AM EDT, 05/22/24 9:15:00 EDT Start Date: 05/22/24 Stop Date: 05/22/24 Status: Completed Problems Active Problems Problem Classification Problem Date Documented Da te Episodic/Chronic Other injuries and conditions due to external causes (1 source) Fracture of bone; Translations: [Other injury of unspecified body region, initial encounter] 05-14-2024 Episodic Residual codes; unclassified (2 sources) Pain; Translations: [Pain, unspecified] 05-14-2024 Episodic Residual codes; unclassified (1 source) Pain, unspecified; Translations: [Pain] Onset: 05-14-2024 Episodic Past or Other Problems Problem Classification Problem Date Documented Da te Episodic/Chronic Other connective tissue disease (1 source) Pain in left leg; Translations: [Leg pain, left] Onset: 09-23-2023 Episodic Results Test Name Value Interpretation Reference Range Facility CNOVon 05-14-2024 CNOV Office Visit ([facility] ) MINDI MEAD ([id number]) 1975 M Date Time Provider Department 05/14/24 8:45 AM AMBIKA ACHARYA [facility] During your visit today, we recorded the following information about you: Temperature Pulse Respiration Blood pressure 97.6 degrees 88/minute 18/minute 157/99 Weight 140.5 kg Ambika Acharya APRN.ELIGIBILITY SPECIALIST 05/14/2024 10:15 AM Signed Subjective Complaints of left foot pain and swelling. Patient says about 5 days ago he was hiking and fell. Patient has been using crutches. Patient says he stands for his job so he would like to get it checked out. Patient denies any numbness tingling or loss of feeling. The history is provided by the patient. No mechanism inspector was used. Pain (foot) Review of Systems Constitutional: Negative. Skin: Negative. Objective Physical Exam Constitutional: Appearance: Normal appearance. Pulmonary: Effort: Pulmonary effort is normal. Musculoskeletal: Feet: Feet: Comments: No significant bruising in the areas marked above and purple. Patient has moderate swelling throughout the entire foot and ankle. Patient has normal range of motion in the ankle and no tenderness when palpated. Patient is more tender in the areas that are bruised. Neurological: Mental Status: He is alert. No past medical history on file. PAST SURGICAL HISTORY Procedure Laterality Date TONSILLECTOMY HX ALLERGIES Penicillins MEDICATIONS citalopram (CELEXA) 40 mg tablet take 1 tablet by mouth once daily at night oxybutynin ER (DITROPAN XL) 15 mg 24 hr Extended Rel Tab Take 15 mg by mouth once daily. multivit-min/ferrous fumarate (MULTI VITAMIN ORAL) Take by mouth. predniSONE (DELTASONE) 10 mg tablet Take 4 tabs daily for 3 days, then 2 tabs daily for 3 days, then 1 tab daily for 3 days with food. (Patient not taking: Reported on 05/14/2024) cyclobenzaprine (FLEXERIL) 10 mg tablet Take 1 tablet by mouth three times a day as needed for muscle spasm. (Patient not taking: Reported on 05/14/2024) lisinopril (ZESTRIL, PRINIVIL) 5 mg tablet Take 5 mg by mouth once daily. (Patient not taking: Reported on 02/15/2021 ) famotidine (PEPCID) 20 mg tablet Take 20 mg by mouth twice daily. (Patient not taking: Reported on 05/14/2024) fexofenadine HCl (CANDICE ORAL) Take by mouth. (Patient not taking: Reported on 05/14/2024) Chlorhexidine Gluconate (PERIDEX) 0.12 % solution Use 15 mL as instructed twice daily. Rinse around mouth for 30 seconds then expectorate (Patient not taking: Reported on 05/25/2021 ) naproxen (NAPROSYN) 500 mg tablet Take 1 tablet by mouth twice daily as needed (pain/inflammation, take with food.). (Patient not taking: Reported on 05/25/2021) fluticasone (FLONASE) 50 mcg/actuation nasal spray Use 2 Sprays in each nostril once daily. Rinse mouth after use. (Patient not taking: Reported on 02/15/2021) benzonatate (TESSALON PERLE) 100 mg capsule Take 2 capsules by mouth three times daily as needed. (Patient not taking: Reported on 03/02/2019) Brompheniramine-Pseudo eph-DM (BROMFED DM) 2-30-10 mg/5 mL syrup Take 10 mL by mouth four times daily as needed. (Patient not taking: Reported on 09/07/2018) albuterol HFA (VENTOLIN HFA) 90 mcg/actuation inhaler Inhale 2 Puffs as instructed every 4 hours as needed for Wheezing/Shortness of Breath. (Patient not taking: Reported on 03/02/2019) triamcinolone acetonide (KENALOG) 0.1 % cream Apply 1 application to affected area twice daily. (Patient not taking: Reported on 05/27/2018) sertraline (ZOLOFT) 50 mg tablet Take 1 tablet by mouth once daily. (Patient not taking: Reported on 05/27/2018) LORazepam (ATIVAN) 0.5 mg tab Take 0.5 tablets by mouth once daily as needed. (Patient not taking: Reported on 05/27/2018) FAMILY HISTORY Problem Relation Age of Onset Arthritis Mother None Father None Sister Social History Tobacco Use Smoking status: Never Smokeless tobacco: Never Substance Use Topics Alcohol use: No Drug use: No ASSESSMENT/PLAN: 1. Pain - ICD9: 780.96, ICD10: R52 (primary diagnosis) - XR FOOT GENERAL 3V AP/LAT/OBL LEFT * * * * Physician Interpretation * * * * EXAMINATION: XR FOOT 3V AP/LAT/OBL LT PATIENT/TECHNOLOGIST PROVIDED HISTORY: Dorsal left forefoot and midfoot pain along the 1st metatarsal but spreads through out the foot following a fall 4 days ago. CLINICAL INFORMATION: 49 years old Male with Pain TECHNIQUE: XR FOOT 3V AP/LAT/OBL LT Laterality: LEFT Number of different views (projections): 3 COMPARISON: None RESULT: Soft tissue swelling dorsum of the forefoot. Small ossific densities in the region of the Lisfranc ligament with mild diastases between the base of the 1st and 2nd metatarsal and mild widening C1-M2 distance suspicious for Lisfranc injury. No subluxation or dislocation. Joint spaces are maintained with scattered small marginal osteophytes. Moderat (more content not included)... Normal [facility] XR FOOT 3V AP/LAT/OBL LTon 0 05-14-2024 XR FOOT 3V AP/LAT/OBL LT * * *Final Report* * * DATE OF EXAM: May 14 2024 9:13AM WOX [id number] - XR FOOT 3V AP/LAT/OBL LT / PROCEDURE REASON: Pain * * * * Physician Interpretation * * * * EXAMINATION: XR FOOT 3V AP/LAT/OBL LT PATIENT/TECHNOLOGIST PROVIDED HISTORY: Dorsal left forefoot and midfoot pain along the 1st metatarsal but spreads through out the foot following a fall 4 days ago. CLINICAL INFORMATION: 49 years old Male with Pain TECHNIQUE: XR FOOT 3V AP/LAT/OBL LT Laterality: LEFT Number of different views (projections): 3 COMPARISON: None RESULT: Soft tissue swelling dorsum of the forefoot. Small ossific densities in the region of the Lisfranc ligament with mild diastases between the base of the 1st and 2nd metatarsal and mild widening C1-M2 distance suspicious for Lisfranc injury. No subluxation or dislocation. Joint spaces are maintained with scattered small marginal osteophytes. Moderate size posterior calcaneal spur. IMPRESSION: Findings suspicious for Lisfranc injury. Chore Tender: LEBRON Transcribe Date/Time: May 14 2024 9:22A Dictated by : JESSICA GRAHAM DO This examination was interpreted and the report reviewed and electronically signed by: JESSICA GRAHAM DO on May 14 2024 9:32AM EST [id number] Normal [facility] XR Foot - left AP and Latera l and obliqueon 05-14-2024 IMPRESSION: Findings suspicious for Lisfranc injury. Chore Tender: LEBRON Transcribe Date/Time: May 14 2024 9:22A Dictated by : JESSICA GRAHAM DO This examination was interpreted and the report reviewed and electronically signed by: JESSICA GRAHAM DO on May 14 2024 9:32AM [facility] DIVISION OF RADIOLOGY * * *Final Report* * * DATE OF EXAM: May 14 2024 9:13AM [id number] - XR FOOT 3V AP/LAT/OBL LT / PROCEDURE REASON: Pain * * * * Physician Interpretation * * * * EXAMINATION: XR FOOT 3V AP/LAT/OBL LT PATIENT/TECHNOLOGIST PROVIDED HISTORY: Dorsal left forefoot and midfoot pain along the 1st metatarsal but spreads through out the foot following a fall 4 days ago. CLINICAL INFORMATION: 49 years old Male with Pain TECHNIQUE: XR FOOT 3V AP/LAT/OBL LT Laterality: LEFT Number of different views (projections): 3 COMPARISON: None RESULT: Soft tissue swelling dorsum of the forefoot. Small ossific densities in the region of the Lisfranc ligament with mild diastases between the base of the 1st and 2nd metatarsal and mild widening C1-M2 distance suspicious for Lisfranc injury. No subluxation or dislocation. Joint spaces are maintained with scattered small marginal osteophytes. Moderate size posterior calcaneal spur. DIVISION OF RADIOLOGY Provider, [facility] - 05/14/2024 * * *Final Report* * * DATE OF EXAM: May 14 2024 9:13AM [id number] - XR FOOT 3V AP/LAT/OBL LT / PROCEDURE REASON: Pain * * * * Physician Interpretation * * * * EXAMINATION: XR FOOT 3V AP/LAT/OBL LT PATIENT/TECHNOLOGIST PROVIDED HISTORY: Dorsal left forefoot and midfoot pain along the 1st metatarsal but spreads through out the foot following a fall 4 days ago. CLINICAL INFORMATION: 49 years old Male with Pain TECHNIQUE: XR FOOT 3V AP/LAT/OBL LT Laterality: LEFT Number of different views (projections): 3 COMPARISON: None RESULT: Soft tissue swelling dorsum of the forefoot. Small ossific densities in the region of the Lisfranc ligament with mild diastases between the base of the 1st and 2nd metatarsal and mild widening C1-M2 distance suspicious for Lisfranc injury. No subluxation or dislocation. Joint spaces are maintained with scattered small marginal osteophytes. Moderate size posterior calcaneal spur. IMPRESSION IMPRESSION: Findings suspicious for Lisfranc injury. Chore Tender: PSCAbundio Transcribe Date/Time: May 14 2024 9:22A Dictated by : JESSICA GRAHAM DO This examination was interpreted and the report reviewed and electronically signed by: JESSICA GRAHAM DO on May 14 2024 9:32AM EST [facility] Radiology Study observation (narrative) [facility] XR Foot - left AP and Latera l and obliqueOrdered By: Ccmustapha Provider on 05-14-2024 [facility] CNOVon 09-23-2023 CNOV Office Visit ([facility] ) MINDI MEAD Lorenzo ([id number]) 1975 M Date Time Provider Department 09/23/23 10:15 AM JAVON CAMERON [facility] During your visit today, we recorded the following information about you: Temperature Pulse Respiration Blood pressure 98.4 degrees 105/minute 20/minute 148/102 Weight 143.1 kg Javon Cameron APRN.ELIGIBILITY SPECIALIST 09/23/2023 3:36 PM Signed This note was created using NoteWriter. Subjective Mindi Mead is a 48 year [...] mg by mouth twice daily. fexofenadine HCl (CANDICE ORAL) Take by mouth. predniSONE (DELTASONE) 10 [...] (Patient not taking: Reported on 03/02/2019 ) Brompheniramine-Pseudo eph-DM (BROMFED DM) 2-30-10 mg/5 mL syrup Take [...] Cardiovascular: Rate and Rhythm: Normal rate. Pulmonary: Effo (more content not included)... Normal [facility] DVT LOWER LTon 09-23-2023 DVT LOWER LT * * *Final Report* * * DATE OF EXAM: Sep 23 2023 2:48PM WRU [id number] - US DVT LOWER LT / PROCEDURE REASON: Leg pain, left * * * * Physician Interpretation * * * * EXAMINATION: LEFT LOWER EXTREMITY DEEP VENOUS ULTRASOUND WITH DOPPLER IMAGING CLINICAL HISTORY: Leg pain TECHNIQUE: Grayscale with compression maneuvers, color Doppler and spectral Doppler imaging of the left proximal deep veins was performed. Grayscale with compression maneuvers of the peroneal and posterior tibial veins was performed. The left great and small saphenous veins were evaluated at their insertion to the deep system. The contralateral common femoral vein was imaged for comparison. Images were obtained and stored in a permanent archive and interpreted remotely. MQ: [id number] COMPARISON: None RESULT: LEFT LOWER EXTREMITY PROXIMAL DEEP VEINS Distal External Iliac, Common Femoral and proximal Profunda Veins: Compression: Normal Doppler: Normal, spontaneous respirophasic flow. Normal response to augmentation. Femoral vein: Compression: Normal Doppler: Normal, spontaneous flow. Normal response to augmentation. Popliteal vein: Compression: Normal Doppler: Normal, spontaneous flow. Normal response to augmentation. CALF DEEP VEINS Peroneal veins: Normal compression. Posterior tibial veins: Normal compression. Gastrocnemius and Soleal veins: Not imaged. SUPERFICIAL VEINS Great saphenous: Patent and compressible at insertion into common femoral vein; not otherwise assessed. Small Saphenous: Patent and compressible in the proximal calf, not otherwise assessed. RIGHT LOWER EXTREMITY (FOR COMPARISON) Common Femoral Vein: Compression: Normal Doppler: Normal, spontaneous respirophasic flow. Normal response to augmentation. IMPRESSION: Negative study for proximal DVT in the left lower extremity. Negative study for calf DVT in the left lower extremity. Negative study for superficial thrombophlebitis in the imaged segments of the left lower extremity. Chore Tender: PSCB Transcribe Date/Time: Sep 23 2023 2:50P Dictated by : JANELL JEAN BAPTISTE MD This examination was interpreted and the report reviewed and electronically signed by: JANELL JEAN BAPTISTE MD on Sep 23 2023 2:53PM EST [id number] Normal [facility] Vital Signs Date Time Vital Sign Value Performing Clinician Facility 05-22-2024 10:44-0400 Diastolic Blood Pressure Non-Invasive 93 mm[Hg] MARILU GOODMAN DPM [facility] 05-22-2024 10:44-0400 Heart rate 87 /min MARILU SUPPAN DPM [facility] 05-22-2024 10:44-0400 Respiratory rate 16 /min MARILU SUPPAN DPM [facility] 05-22-2024 10:44-0400 Systolic Blood Pressure Non-Invasive 127 mm[Hg] MARILU SUPPAN DPM [facility] 05-22-2024 10:16-0400 Diastolic Blood Pressure Non-Invasive 80 mm[Hg] MARILU SUPPAN DPM [facility] 05-22-2024 10:16-0400 Heart rate 86 /min MARILU SUPPAN DPM [facility] 05-22-2024 10:16-0400 Respiratory rate 14 /min MARILU SUPPAN DPM [facility] 05-22-2024 10:16-0400 Systolic Blood Pressure Non-Invasive 129 mm[Hg] MARILU SUPPAN DPM [facility] 05-22-2024 10:01-0400 Diastolic Blood Pressure Non-Invasive 97 mm[Hg] MARILU SUPPAN DPM [facility] 05-22-2024 10:01-0400 Heart rate 83 /min MARILU SUPPAN DPM [facility] 05-22-2024 10:01-0400 Respiratory rate 15 /min MARILU SUPPAN DPM [facility] 05-22-2024 10:01-0400 Systolic Blood Pressure Non-Invasive 134 mm[Hg] MARILU SUPPAN DPM [facility] 05-22-2024 09:16-0400 Heart rate 102 /min MARILU SUPPAN DPM [facility] 05-22-2024 09:05-0400 Respiratory Rate - Anes 0 br/min MARILU SUPPAN DPM [facility] 05-22-2024 09:04-0400 Body temperature 97.88 [degF] MARILU SUPPAN DPM [facility] 05-22-2024 09:00-0400 Respiratory Rate - Anes 11 br/min MARILU SUPPAN DPM [facility] 05-22-2024 08:55-0400 Respiratory Rate - Anes 10 br/min MARILU SUPPAN DPM [facility] 05-22-2024 08:45-0400 Body temperature 96.8 [degF] MARILU SUPPAN DPM [facility] 05-22-2024 08:30-0400 Body temperature 96.8 [degF] MARILU SUPPAN DPM [facility] 05-22-2024 08:15-0400 Body temperature 96.8 [degF] MARILU SUPPAN DPM [facility] 05-22-2024 06:55-0400 Body height 180 cm MARILU SUPPAN DPM [facility] 05-22-2024 06:55-0400 Body temperature 97.16 [degF] MARILU SUPPAN DPM [facility] 05-22-2024 06:55-0400 Body weight 136.4 kg MARILU SUPPAN DPM [facility] 05-22-2024 06:55-0400 Heart rate 94 /min MARILU SUPPAN DPM [facility] 05-21-2024 10:21-0400 Blood Pressure Cuff Size MARILU SUPPAN DPM [facility] 05-21-2024 10:21-0400 Blood Pressure Location MARILU SUPPAN DPM [facility] 05-21-2024 10:21-0400 Body height 180.3 cm MARILU SUPPAN DPM [facility] 05-21-2024 10:21-0400 Body weight 136.4 kg MARILU SUPPAN DPM [facility] 05-21-2024 10:21-0400 Body weight 41.96 kg/m2 MARILU SUPPAN DPM [facility] 05-21-2024 10:21-0400 Diastolic Blood Pressure Non-Invasive 87 mm[Hg] MARILU SUPPAN DPM [facility] 05-21-2024 10:21-0400 Heart rate 108 /min MARILU SUPPAN DPM [facility] 05-21-2024 10:21-0400 Respiratory rate 20 /min MARILU SUPPAN DPM [facility] 05-21-2024 10:21-0400 Systolic Blood Pressure Non-Invasive 128 mm[Hg] MARILU SUPPAN DPM [facility] 05-14-2024 08:44-0400 Body temperature 97.59 [degF] Ambika Acharya APRN.ELIGIBILITY SPECIALIST Work Phone: [facility] 05-14-2024 08:44-0400 Body weight 140.5 kg Ambika Acharya APRN.ELIGIBILITY SPECIALIST Work Phone: [facility] 05-14-2024 08:44-0400 Diastolic blood pressure 99 mm[Hg] Ambika Acharya APRN.ELIGIBILITY SPECIALIST Work Phone: [facility] 05-14-2024 08:44-0400 Heart rate 88 /min Ambika Acharya APRN.ELIGIBILITY SPECIALIST Work Phone: [facility] 05-14-2024 08:44-0400 Respiratory rate 18 /min Ambika Acharya APRN.ELIGIBILITY SPECIALIST Work Phone: [facility] 05-14-2024 08:44-0400 SaO2% (BldA) [Mass fraction] 98 % Ambika Acharya APRN.ELIGIBILITY SPECIALIST Work Phone: [facility] 05-14-2024 08:44-0400 Systolic blood pressure 157 mm[Hg] Ambika Acharya APRN.ELIGIBILITY SPECIALIST Work Phone: [facility] Encounters Encounter Date Encounter Type Care Provider Facility Start: 05-22-2024 End: 05-22-[address] MARCELLA FRANCO DO Facility:[facility] Start: 05-22-2024 End: 05-22-2024 SAME DAY STAY MARILU GOODMAN DPM [facility] Start: 05-21-2024 End: 05-21-2024 Admission to establishment MARILU GOODMAN DPM [facility] Start: 05-21-2024 End: 05-21-2024 ambulatory MARILU GOODMAN DPHelen Facility:[facility] Start: 05-14-2024 End: 05-14-2024 Subsequent hospital visit by physician Liza [facility]ry Work Phone: Radiology Comment on above: Pain [R52] Start: 05-14-2024 End: 05-14-2024 ambulatory MARCELLA FRANCO Facility:[facility] Start: 05-14-2024 End: 05-14-2024 Patient encounter procedure Ambika Acharya APRN.CNP Work Phone: [facility] Comment on above: Pain (Primary Dx); Fracture Start: 09-23-2023 End: 09-23-2023 ambulatory [facility] Facility:[facility] Start: 09-23-2023 End: 09-23-2023 ambulatory [facility] Facility:[facility] Procedures Date Procedure Procedure Detail Performing Clinician Start: 05-14-2024 Radex foot complete minimum 3 views Ambika Acharya APRN.CNP Work Phone: Colonoscopy MARILU GOODMAN DP M Tonsillectomy MARILU Alcala PM Plan of Treatment Date Care Activity Detail Author Start: 07-20-2030 Urine microalbumin profile DTa P,Tdap,Td Vaccine (3 - Td or Tdap) [facility] Start: 04-26-2024 Covid-19 Vaccine ( season) Covid-19 Vaccine () [facility] Start: 04-26-2024 Influenza vaccination Influenza Vacc ine (#1) [facility] Start: 2022 Diabetes Screening Diabetes Screenin g [facility] Start: 2022 Screening for malign ant neoplasm of colon [facility] Start: 2012 Lipid panel Lipid Screening [facility] Start: 1996 Hepatitis B Vaccine (1 of 3 - 19+ 3-dose series) Hepatitis B Vaccine (1 of 3 - 19+ 3-dose series) [facility] Start: 1995 Anxiety Screening Anxiety Screening [facility] Start: 1995 Depression Screening Depression Scre ening [facility] Start: 1995 Hepatitis C screening Hepatitis C Sc reening [facility] Start: 1995 HIV screening HIV Screening [facility] Immunizations Immunization Date Immunization Notes Care Provider Ramonita valdovinos 07-30-2023 influenza virus vaccine, unspecified formulation Ambika Acharya APRN.CNP Work Phone: [facility] 09-07-2018 tetanus toxoid, redu ryan diphtheria toxoid, and acellular pertussis vaccine, adsorbed Ambika Acharya APRN.CNP Work Phone: [facility] Work Phone: Payers Date Payer Category Payer Unknown [employer] PPO OOS [id number] 2023-Present [phone] [address] [place] [address] PPO [id number] 2023 Unknown [id number] 1975 Unknown [id number] 1975 Unknown [id number] Social History Date Type Detail Facility Start: 09-23-2023 End: 05-21-2024 Tobacco smoking status NHIS Never smoked tobacco [facility] Start: 09-23-2023 Tobacco use and exposure Smoke less tobacco non-user [facility] Start: 05-14-2024 Alcoholic beverage intake Curr ent non-drinker of alcohol (finding) [facility] Start: 08-01-2020 End: 05-14-2024 History of Social function [facility] Start: 08-01-2020 End: 05-14-2024 Tobacco use panel [facility] National Score (1-10 0), lower number is lower risk Not on file [facility] Start: 1975 Sex assigned at Not on file [facility] Sex Assigned At Male [facility] Functional Status Date Assessment Result Facility 05-22-2024 Functional Status Maintained [facility] 05-21-2024 Functional Status Sensory Deficits None A [facility] Mental Status Date Assessment Result Facility 05-22-2024 Mental Status Orientation Oriented x 4 [facility] Clinical Notes 09-23-2023 to 05-22-2024 Ruth Ann Gale, RT(R) - 05/14/2024 9:10 AM Ambika Mcmullen APRN.ELIGIBILITY SPECIALIST - 05/14/2024 8:53 AM EDT Note Date & Type Note Facility 05-22-2024 Hospital Discharge instructions Patient Education 05/22/2024 09:27:27 Displaced Bimalleolar Ankle Fracture Treated With ORIF, Care After Displaced Bimalleolar Ankle Fracture Treated With ORIF, Care After This sheet gives you information about how to care for yourself after your procedure. Your health care provider may also give you more specific instructions. If you have problems or questions, contact your health care provider. What can I expect after the procedure? After the procedure, it is common to have: Pain. Swelling. A small amount of fluid from your incision. Follow these instructions at home: If you have a splint or boot: Wear the splint or boot as told by your health care provider. Remove it only as told by your health care provider. Loosen the splint or boot if your toes tingle, become numb, or turn cold and blue. Keep the splint or boot clean. If the splint or boot is not waterproof: ?Do not let it get wet. ?Cover it with a watertight covering when you take a bath or a shower. If you have a cast: Do not stick anything inside the cast to scratch your skin. Doing that increases your risk of infection. Check the skin around the cast every day. Tell your health care provider about any concerns. You may put lotion on dry skin around the edges of the cast. Do not put lotion on the skin underneath the cast. Keep the cast clean. If the cast is not waterproof: ?Do not let it get wet. ?Cover it with a watertight covering when you take a bath or a shower. Bathing Do not take baths, swim, or use a hot tub until your health care provider approves. Ask your health care provider if you can take showers. If your splint, boot, or cast is not waterproof, cover it with a watertight covering when you take a bath or a shower. Keep the bandage (dressing) dry until your health care provider says it can be removed. Incision care Follow instructions from your health care provider about how to take care of your incision. Make sure you: ?Wash your hands with soap and water before you change your bandage (dressing). If soap and water are not available, use hand seating captain. ?Change your dressing as told by your health care provider. ?Leave stitches (sutures), skin glue, or adhesive strips in place. These skin closures may need to stay in place for 2 weeks or longer. If adhesive strip edges start to loosen and curl up, you may trim the loose edges. Do not remove adhesive strips completely unless your health care provider tells you to do that. Check your incision area every day for signs of infection. Check for: ?Redness. ?More pain or swelling. ?Blood or more fluid. ?Warmth. ?Pus or a bad smell. Managing pain, stiffness, and swelling If directed, put ice on the affected area. ?If you have a removable splint or boot, remove it as told by your health care provider. ?Put ice in a plastic bag. ?Place a towel between your skin and the bag or between your cast and the bag. ?Leave the ice on for 20 minutes, 2 3 times a day. Move your toes often to avoid stiffness and to lessen swelling. Raise (elevate) the injured area above the level of your heart while you are sitting or lying down. To do this, try putting a few pillows under your leg and ankle. Driving Do not drive or use heavy machinery while taking prescription pain medicine. Ask your health care provider when it is safe to drive if you have a splint, boot, or cast on your foot. Activity Return to your normal activities as told by your health care provider. Ask your health care provider what activities are safe for you. Do exercises as told by your health care provider or physical therapist. Do not use your injured limb to support (bear) your body weight until your health care provider says that you can. Follow weight-bearing restrictions as told. Use crutches or other devices to help you move around (assistive devices) as directed. General instructions Do not put pressure on any part of the splint or cast until it is fully hardened. This may take several hours. Do not use any products that contain nicotine or tobacco, such as cigarettes and e-cigarettes. These can delay bone healing. If you need help quitting, ask your health care provider. Take qqyi-oqo-aeaarih and prescription medicines only as told by your health care provider. If you are taking prescription pain medicine, take actions to prevent or treat constipation. Your health care provider may recommend that you: ?Drink enough fluid to keep your urine pale yellow. ?Eat foods that are high in fiber, such as fresh fruits and vegetables, whole grains, and beans. ?Limit foods that are high in fat and processed sugars, such as fried or sweet foods. ?Take an jgqk-glc-ybyosgt or prescription medicine for constipation. Keep all follow-up visits as told by your health care provider. This is important. Contact a health care provider if: You have a fever. Your pain medicine is not helping. You have redness around your incision. You have more swelling or pain around your incision. You have more fluid or blood coming from your incision or leaking through your cast. Your incision feels warm to the touch. You have pus or a bad smell coming from your incision or from your cast or dressing. Get help right away if: The edges of your incision come apart after the stitches or girish have been taken out. You have chest pain. You have difficulty breathing. You have numbness or tingling in your foot or leg. Your foot becomes cold, pale, or blue. Summary After the procedure, it is common to have some pain and swelling. If your splint, boot, or cast is not waterproof, do not let it get wet. Contact your health care provider if you have severe pain or swelling, or if you have more fluids coming from your incision or leaking through your cast. Get help right away if you have numbness or tingling in your foot or leg, or if your foot becomes cold, pale, or blue. This information is not intended to replace advice given to you by your health care provider. Make sure you discuss any questions you have with your health care provider. Document Released: 03/01/2006 Document Revised: 07/25/2018 Document Reviewed: 05/28/2018 [employer] Patient Education 2020 [employer]. 05/22/2024 09:25:14 General Anesthesia, Adult, Care After General Anesthesia, Adult, Care After This sheet gives you information about how to care for yourself after your procedure. Your health care provider may also give you more specific instructions. If you have problems or questions, contact your health care provider. What can I expect after the procedure? After the procedure, the following side effects are common: Pain or discomfort at the IV site. Nausea. Vomiting. Sore throat. Trouble concentrating. Feeling cold or chills. Weak or tired. Sleepiness and fatigue. Soreness and body aches. These side effects can affect parts of the body that were not involved in surgery. Follow these instructions at home: For at least 24 hours after the procedure: Have a responsible adult stay with you. It is important to have someone help care for you until you are awake and alert. Rest as needed. Do not: ?Participate in activities in which you could fall or become injured. ?Drive. ?Use heavy machinery. ?Drink alcohol. ?Take sleeping pills or medicines that cause drowsiness. ?Make important decisions or sign legal documents. ?Take care of children on your own. Eating and drinking Follow any instructions from your health care provider about eating or drinking restrictions. When you feel hungry, start by eating small amounts of foods that are soft and easy to digest (bland), such as toast. Gradually return to your regular diet. Drink enough fluid to keep your urine pale yellow. If you vomit, rehydrate by drinking water, juice, or clear broth. General instructions If you have sleep apnea, surgery and certain medicines can increase your risk for breathing problems. Follow instructions from your health care provider about wearing your sleep device: ?Anytime you are sleeping, including during daytime naps. ?While taking prescription pain medicines, sleeping medicines, or medicines that make you drowsy. Return to your normal activities as told by your health care provider. Ask your health care provider what activities are safe for you. Take arrc-jdo-hrbmmxm and prescription medicines only as told by your health care provider. If you smoke, do not smoke without supervision. Keep all follow-up visits as told by your health care provider. This is important. Contact a health care provider if: You have nausea or vomiting that does not get better with medicine. You cannot eat or drink without vomiting. You have pain that does not get better with medicine. You are unable to pass urine. You develop a skin rash. You have a fever. You have redness around your IV site that gets worse. Get help right away if: You have difficulty breathing. You have chest pain. You have blood in your urine or stool, or you vomit blood. Summary After the procedure, it is common to have a sore throat or nausea. It is also common to feel tired. Have a responsible adult stay with you for the first 24 hours after general anesthesia. It is important to have someone help care for you until you are awake and alert. When you feel hungry, start by eating small amounts of foods that are soft and easy to digest (bland), such as toast. Gradually return to your regular diet. Drink enough fluid to keep your urine pale yellow. Return to your normal activities as told by your health care provider. Ask your health care provider what activities are safe for you. This information is not intended to replace advice given to you by your health care provider. Make sure you discuss any questions you have with your health care provider. Document Released: 11/18/2001 Document Revised: 08/15/2018 Document Reviewed: 03/28/2018 [employer] Patient Education [employer]. Follow Up Care 05/20/2024 08:52:39 With:MARILU GOODMAN DPM, Surgery Address: [address] [place] [address], [address] [facility] [place], [place] [address]- When: Unknown Comments:Follow up office visit 05/28/2024 @1040am. [facility] 05-22-2024 Summary of episode note Discharge Instructions Thank you for allowing [facility] to assist you with your healthcare needs. The following is important discharge information regarding your hospital visit. Your Care Team MARCELLA FRANCO DO What to do next Follow Up Appointments Follow Up with MARILU GOODMAN DPM, Surgery Where:[address] [place] [address], [address] [facility] [place], [place] [address]- Additional Information: Follow up office visit 05/28/2024 @1040am. The Following Activity and Diet Have Been Ordered for You Discharge Activity - Ordered -- Other, Follow the post-operative/post-procedure activity instructions provided by your physician's office., 05/22/24 9:03:00 EDT No qualifying data available. Allergies penicillin Hives Medications Please ask your primary doctor or pharmacist before taking any other medication not listed, including over the counter drugs, herbal medications, vitamins and or supplements as they may interact with your home medications. What How Much When Instructions Last Dose Unchanged acetaminophen (Tylenol Extra Strength 500 mg oral tablet) 2 tab(s) by mouth Two (2) times a day as needed for as needed for pain Unchanged acetaminophen-oxyCODONE (acetaminophen-oxyCODONE 325 mg-5 mg oral tablet) 1 tab(s) by mouth Every 6 hours as needed for for pain Unchanged citalopram (citalopram 20 mg oral tablet) 1 tab(s) by mouth Daily at bedtime Unchanged citalopram (citalopram 40 mg oral tablet) 1 tab(s) by mouth Daily at bedtime Unchanged fexofenadine (Candice 24 Hour Allergy oral tablet) 1 tab(s) by mouth Every day Unchanged LORazepam (LORazepam 1 mg oral tablet) 1 tab(s) by mouth Every 12 hours as needed for as needed for anxiety Unchanged multivitamin with minerals (Alive Men's Ultra Multivitamin oral tablet) 1 tab(s) by mouth Once a day Unchanged oxybutynin (oxybutynin 15 mg/ 24 hr oral tablet, extended release) 1 tab(s) by mouth Once a day Please take this list to your next doctor s visit. Bring all medications you take, including over the counter medications, herbals and other supplements with you to your doctor s visit. Patients and families are reminded to discard old lists and to update any records with all medication providers or retail pharmacies. Education Materials Displaced Bimalleolar Ankle Fracture Treated With ORIF, Care After This sheet gives you information about how to care for yourself after your procedure. Your health care provider may also give you more specific instructions. If you have problems or questions, contact your health care provider. What can I expect after the procedure? After the procedure, it is common to have: Pain. Swelling. A small amount of fluid from your incision. Follow these instructions at home: If you have a splint or boot: Wear the splint or boot as told by your health care provider. Remove it only as told by your health care provider. Loosen the splint or boot if your toes tingle, become numb, or turn cold and blue. Keep the splint or boot clean. If the splint or boot is not waterproof: ? Do not let it get wet. ? Cover it with a watertight covering when you take a bath or a shower. If you have a cast: Do not stick anything inside the cast to scratch your skin. Doing that increases your risk of infection. Check the skin around the cast every day. Tell your health care provider about any concerns. You may put lotion on dry skin around the edges of the cast. Do not put lotion on the skin underneath the cast. Keep the cast clean. If the cast is not waterproof: ? Do not let it get wet. ? Cover it with a watertight covering when you take a bath or a shower. Bathing Do not take baths, swim, or use a hot tub until your health care provider approves. Ask your health care provider if you can take showers. If your splint, boot, or cast is not waterproof, cover it with a watertight covering when you take a bath or a shower. Keep the bandage (dressing) dry until your health care provider says it can be removed. Incision care Follow instructions from your health care provider about how to take care of your incision. Make sure you: ? Wash your hands with soap and water before you change your bandage (dressing). If soap and water are not available, use hand seating captain. ? Change your dressing as told by your health care provider. ? Leave stitches (sutures), skin glue, or adhesive strips in place. These skin closures may need to stay in place for 2 weeks or longer. If adhesive strip edges start to loosen and curl up, you may trim the loose edges. Do not remove adhesive strips completely unless your health care provider tells you to do that. Check your incision area every day for signs of infection. Check for: ? Redness. ? More pain or swelling. ? Blood or more fluid. ? Warmth. ? Pus or a bad smell. Managing pain, stiffness, and swelling If directed, put ice on the affected area. ? If you have a removable splint or boot, remove it as told by your health care provider. ? Put ice in a plastic bag. ? Place a towel between your skin and the bag or between your cast and the bag. ? Leave the ice on for 20 minutes, 2 3 times a day. Move your toes often to avoid stiffness and to lessen swelling. Raise (elevate) the injured area above the level of your heart while you are sitting or lying down. To do this, try putting a few pillows under your leg and ankle. Driving Do not drive or use heavy machinery while taking prescription pain medicine. Ask your health care provider when it is safe to drive if you have a splint, boot, or cast on your foot. Activity Return to your normal activities as told by your health care provider. Ask your health care provider what activities are safe for you. Do exercises as told by your health care provider or physical therapist. Do not use your injured limb to support (bear) your body weight until your health care provider says that you can. Follow weight-bearing restrictions as told. Use crutches or other devices to help you move around (assistive devices) as directed. General instructions Do not put pressure on any part of the splint or cast until it is fully hardened. This may take several hours. Do not use any products that contain nicotine or tobacco, such as cigarettes and e-cigarettes. These can delay bone healing. If you need help quitting, ask your health care provider. Take pcco-myp-cgakfql and prescription medicines only as told by your health care provider. If you are taking prescription pain medicine, take actions to prevent or treat constipation. Your health care provider may recommend that you: ? Drink enough fluid to keep your urine pale yellow. ? Eat foods that are high in fiber, such as fresh fruits and vegetables, whole grains, and beans. ? Limit foods that are high in fat and processed sugars, such as fried or sweet foods. ? Take an spvm-wgv-wplbvlo or prescription medicine for constipation. Keep all follow-up visits as told by your health care provider. This is important. Contact a health care provider if: You have a fever. Your pain medicine is not helping. You have redness around your incision. You have more swelling or pain around your incision. You have more fluid or blood coming from your incision or leaking through your cast. Your incision feels warm to the touch. You have pus or a bad smell coming from your incision or from your cast or dressing. Get help right away if: The edges of your incision come apart after the stitches or girish have been taken out. You have chest pain. You have difficulty breathing. You have numbness or tingling in your foot or leg. Your foot becomes cold, pale, or blue. Summary After the procedure, it is common to have some pain and swelling. If your splint, boot, or cast is not waterproof, do not let it get wet. Contact your health care provider if you have severe pain or swelling, or if you have more fluids coming from your incision or leaking through your cast. Get help right away if you have numbness or tingling in your foot or leg, or if your foot becomes cold, pale, or blue. This information is not intended to replace advice given to you by your health care provider. Make sure you discuss any questions you have with your health care provider. Document Released: 03/01/2006 Document Revised: 07/25/2018 Document Reviewed: 05/28/2018 [employer] Patient Education 2020 [employer]. General Anesthesia, Adult, Care After This sheet gives you information about how to care for yourself after your procedure. Your health care provider may also give you more specific instructions. If you have problems or questions, contact your health care provider. What can I expect after the procedure? After the procedure, the following side effects are common: Pain or discomfort at the IV site. Nausea. Vomiting. Sore throat. Trouble concentrating. Feeling cold or chills. Weak or tired. Sleepiness and fatigue. Soreness and body aches. These side effects can affect parts of the body that were not involved in surgery. Follow these instructions at home: For at least 24 hours after the procedure: Have a responsible adult stay with you. It is important to have someone help care for you until you are awake and alert. Rest as needed. Do not: ? Participate in activities in which you could fall or become injured. ? Drive. ? Use heavy machinery. ? Drink alcohol. ? Take sleeping pills or medicines that cause drowsiness. ? Make important decisions or sign legal documents. ? Take care of children on your own. Eating and drinking Follow any instructions from your health care provider about eating or drinking restrictions. When you feel hungry, start by eating small amounts of foods that are soft and easy to digest (bland), such as toast. Gradually return to your regular diet. Drink enough fluid to keep your urine pale yellow. If you vomit, rehydrate by drinking water, juice, or clear broth. General instructions If you have sleep apnea, surgery and certain medicines can increase your risk for breathing problems. Follow instructions from your health care provider about wearing your sleep device: ? Anytime you are sleeping, including during daytime naps. ? While taking prescription pain medicines, sleeping medicines, or medicines that make you drowsy. Return to your normal activities as told by your health care provider. Ask your health care provider what activities are safe for you. Take [id number] and prescription medicines only as told by your health care provider. If you smoke, do not smoke without supervision. Keep all follow-up visits as told by your health care provider. This is important. Contact a health care provider if: You have nausea or vomiting that does not get better with medicine. You cannot eat or drink without vomiting. You have pain that does not get better with medicine. You are unable to pass urine. You develop a skin rash. You have a fever. You have redness around your IV site that gets worse. Get help right away if: You have difficulty breathing. You have chest pain. You have blood in your urine or stool, or you vomit blood. Summary After the procedure, it is common to have a sore throat or nausea. It is also common to feel tired. Have a responsible adult stay with you for the first 24 hours after general anesthesia. It is important to have someone help care for you until you are awake and alert. When you feel hungry, start by eating small amounts of foods that are soft and easy to digest (bland), such as toast. Gradually return to your regular diet. Drink enough fluid to keep your urine pale yellow. Return to your normal activities as told by your health care provider. Ask your health care provider what activities are safe for you. This information is not intended to replace advice given to you by your health care provider. Make sure you discuss any questions you have with your health care provider. Document Released: 11/18/2001 Document Revised: 08/15/2018 Document Reviewed: 03/28/2018 [employer] Patient Education 2020 [employer] Additional Information VACCINATE! IT SAVES LIVES! Members of the community who have not yet received the COVID-19 vaccine and would like to receive it can visit one of [facility] vaccine clinics. There are many vaccine clinic locations within the [facility]. For locations and available times, please visit [email or web address] It is important to note that some COVID mobile vaccine clinics are held outdoors and may be canceled in rainy or stormy conditions. To learn more about pediatric vaccinations (ages 5-11), we invite you to visit the [facility] webpage. [email or web address] To learn more about the COVID-19 vaccine, we invite you to visit the CDC website for a list of frequently asked questions.https://www.cdc.gov/coron avirus/2019-ncov/vaccines/faq.html [place] [facility] [employer] Patient Portal Access Instructions: Stay connected with your healthcare team and access your personal medical information anytime with the [employer] [facility] Patient Portal. Please follow the directions below to create your [employer] account: 1.Access the email account you provided upon registration to the hospital/physician office.2.Look for an invitation email from [facility].3.Open the email and access the invitation link: Accept Invitation to [employer] [facility].4.Fill in the required mart to create your account. To access your account, visit [email or web address]. Click the blue button labeled Access Patient Portal and then log in with the username and password that you created in the steps above. You will be able to view your test results, lab results, a summary of your visits, upcoming appointments and more. There is also a convenient messaging option where you can send secure messages to your provider. In addition, you will have the ability to download any documents or summaries to your computer and/or send the information securely to a physician. Remember that your healthcare information is confidential, so carefully consider who you will allow to register on the [employer] Patient Portal for access to your information. You can also access the [employer] [facility] Patient Portal on the [employer] royer. Simply click on Patient Portal and then log into your account. If you would like to receive a full copy of your medical records, please contact the [facility] Medical Records Department by calling [phone], Saturday through Saturday between 8 a.m. and 4:30 p.m. HOW TO SAFELY DISPOSE OF PRESCRIPTION MEDICATIONS Please use one of the following methods to safely dispose of your unused medications. 1.Use a drug disposal kit: the drug disposal pouch allows you to safely discard your old and unused drugs. Ask your nurse to give you one when you are discharged.2.Visit a local take-back location: Many local pharmacies and police departments have programs that collect old and unwanted prescription drugs. Call your local pharmacy or go to http://[employer]/0M3Ut0s to find one close to you.3.Make use of household items: Use cat litter or old coffee grounds to dispose medications if other options are not available. Mix your drugs with these household products, seal them in an airtight container and throw it into the garbage. Call [facility]: [phone] to be sure your drugs can be disposed of in this way. Some medicines may require a different approach.4.Never flush your medications down the toilet. IF YOU HAVE BEEN PRESCRIBED AN OPIOID FOR PAIN If you have been prescribed an opioid (such as hydrocodone, oxycodone or morphine), it is critical to understand the possible side effects and risks of opioid pain medications. Even when taken as directed, opioids can have several side effects including: Tolerance, meaning you might need to take more of a medication for the same pain relief. Nausea, vomiting and/or constipation. Sleepiness, dizziness, dry mouth, confusion, depression or itching. Physical dependence, meaning you have withdrawal symptoms when a medication is stopped, can develop within a few days. KNOW YOUR RESPONSIBILITIES It is important to know exactly how much and how often to take the opioid pain medications you are prescribed. Never take opioids in higher amounts or more often than prescribed. Do not combine opioids with alcohol or other drugs that cause drowsiness, such as benzodiazepines, also known as benzos, including diazepam and alprazolam, muscle relaxants or sleep aids. Never sell or share prescription opioids. This is illegal. Store opioids in a secure place and out of reach of others (including children, family, friends and visitors). The last page of this document has been signed and retained as a CHART COPY. Signatures Patient Education Materials Displaced Bimalleolar Ankle Fracture Treated With ORIF, Care After General Anesthesia, Adult, Care After Medication Leaflets My discharge plan and instructions have been reviewed and explained to me and I,MINDI MEAD understand my current condition and have read and understand these discharge instructions. I have received a written copy of the plan/instructions. If I have questions, I am aware that I should contact my doctor. Patient/Child Psychometrist Signature: ____ Date/Time: Relationship to Patient: __ Witness Name/Signature: Date/Time: [facility] 05-22-2024 Anesthesiology Consult note Patient: MINDI MEAD Age: 49 years Sex: Male : 1975 Associated Diagnoses: None Author: EMANUEL PRUITT APRN-WELL DRILLER HELPER Assessment Postanesthesia assessment Vitals: Vital signs from flowsheet : Vital Signs 05/22/2024 9:05 EDT Respiratory Rate - Anes 0 br/min br/min 05/22/2024 9:04 EDT Temperature Temporal Artery 36.6 DegC Heart Rate Monitored 96 bpm Respiratory Rate 19 br/min Systolic Blood Pressure Non-Invasive 155 mmHg HI Diastolic Blood Pressure Non-Invasive 99 mmHg HI 05/22/2024 9:00 EDT Heart Rate Monitored 93 bpm bpm Respiratory Rate - Anes 11 br/min br/min 05/22/2024 8:55 EDT Heart Rate Monitored 91 bpm bpm Respiratory Rate - Anes 10 br/min br/min Systolic Blood Pressure Non-Invasive 130 mmHg mmHg Diastolic Blood Pressure Non-Invasive 81 mmHg mmHg 05/22/2024 8:50 EDT Heart Rate Monitored 88 bpm bpm Respiratory Rate - Anes 9 br/min br/min Systolic Blood Pressure Non-Invasive 152 mmHg mmHg Diastolic Blood Pressure Non-Invasive 105 mmHg mmHg 05/22/2024 8:45 EDT Temperature (Route Not Specified) 36 DegC DegC Heart Rate Monitored 88 bpm bpm Respiratory Rate - Anes 9 br/min br/min Systolic Blood Pressure Non-Invasive 148 mmHg mmHg Diastolic Blood Pressure Non-Invasive 103 mmHg mmHg 05/22/2024 8:40 EDT Heart Rate Monitored 85 bpm bpm Respiratory Rate - Anes 6 br/min br/min Systolic Blood Pressure Non-Invasive 137 mmHg mmHg Diastolic Blood Pressure Non-Invasive 105 mmHg mmHg 05/22/2024 8:35 EDT Heart Rate Monitored 87 bpm bpm Respiratory Rate - Anes 10 br/min br/min Systolic Blood Pressure Non-Invasive 132 mmHg mmHg Diastolic Blood Pressure Non-Invasive 103 mmHg mmHg 05/22/2024 8:30 EDT Temperature (Route Not Specified) 36 DegC DegC Heart Rate Monitored 86 bpm bpm Respiratory Rate - Anes 11 br/min br/min Systolic Blood Pressure Non-Invasive 131 mmHg mmHg Diastolic Blood Pressure Non-Invasive 96 mmHg mmHg 05/22/2024 8:25 EDT Heart Rate Monitored 85 bpm bpm Respiratory Rate - Anes 9 br/min br/min Systolic Blood Pressure Non-Invasive 126 mmHg mmHg Diastolic Blood Pressure Non-Invasive 92 mmHg mmHg 05/22/2024 8:20 EDT Heart Rate Monitored 84 bpm bpm Respiratory Rate - Anes 9 br/min br/min Systolic Blood Pressure Non-Invasive 120 mmHg mmHg Diastolic Blood Pressure Non-Invasive 89 mmHg mmHg 05/22/2024 8:15 EDT Temperature (Route Not Specified) 36 DegC DegC Heart Rate Monitored 83 bpm bpm Respiratory Rate - Anes 9 br/min br/min Systolic Blood Pressure Non-Invasive 121 mmHg mmHg Diastolic Blood Pressure Non-Invasive 95 mmHg mmHg 05/22/2024 8:10 EDT Heart Rate Monitored 84 bpm bpm Respiratory Rate - Anes 7 br/min br/min Systolic Blood Pressure Non-Invasive 118 mmHg mmHg Diastolic Blood Pressure Non-Invasive 85 mmHg mmHg 05/22/2024 8:05 EDT Heart Rate Monitored 84 bpm bpm Respiratory Rate - Anes 7 br/min br/min Systolic Blood Pressure Non-Invasive 115 mmHg mmHg Diastolic Blood Pressure Non-Invasive 78 mmHg mmHg 05/22/2024 8:00 EDT Temperature (Route Not Specified) 36 DegC DegC Heart Rate Monitored 82 bpm bpm Respiratory Rate - Anes 6 br/min br/min Systolic Blood Pressure Non-Invasive 112 mmHg mmHg Diastolic Blood Pressure Non-Invasive 83 mmHg mmHg 05/22/2024 7:55 EDT Heart Rate Monitored 85 bpm bpm Respiratory Rate - Anes 20 br/min br/min Systolic Blood Pressure Non-Invasive 104 mmHg mmHg Diastolic Blood Pressure Non-Invasive 80 mmHg mmHg 05/22/2024 7:50 EDT Heart Rate Monitored 86 bpm bpm Respiratory Rate - Anes 7 br/min br/min Systolic Blood Pressure Non-Invasive 101 mmHg mmHg Diastolic Blood Pressure Non-Invasive 70 mmHg mmHg 05/22/2024 7:45 EDT Temperature (Route Not Specified) 36 DegC DegC Heart Rate Monitored 91 bpm bpm Respiratory Rate - Anes 13 br/min br/min Systolic Blood Pressure Non-Invasive 106 mmHg mmHg Diastolic Blood Pressure Non-Invasive 70 mmHg mmHg 05/22/2024 7:40 EDT Heart Rate Monitored 92 bpm bpm Respiratory Rate - Anes 13 br/min br/min Systolic Blood Pressure Non-Invasive 113 mmHg mmHg Diastolic Blood Pressure Non-Invasive 88 mmHg mmHg 05/22/2024 7:35 EDT Heart Rate Monitored 86 bpm bpm Respiratory Rate - Anes 5 br/min br/min Systolic Blood Pressure Non-Invasive 123 mmHg mmHg Diastolic Blood Pressure Non-Invasive 79 mmHg mmHg 05/22/2024 6:55 EDT Temperature Temporal Artery 36.2 DegC Peripheral Pulse Rate 94 bpm Respiratory Rate 18 br/min Systolic Blood Pressure Non-Invasive 124 mmHg Diastolic Blood Pressure Non-Invasive 96 mmHg HI 05/21/2024 10:21 EDT Peripheral Pulse Rate 108 bpm HI Respiratory Rate 20 br/min Systolic Blood Pressure Non-Invasive 128 mmHg Diastolic Blood Pressure Non-Invasive 87 mmHg Blood Pressure Location Right arm Blood Pressure Cuff Size Large , Measurements from flowsheet . Mental status: alert & oriented x 4. Respiratory function: respirations are non-labored. Respiratory support: none. CV function: Normal rate. Cardiovascular support: none. Pain. Nausea status: see nursing documentation of medications. Postoperative hydration status: within normal limits. Digitally Signed by EMANUEL PRUITT on 05/22/2024 09:13 AM [facility] 05-22-2024 Anesthesiology Consult note Patient: MINDI MEAD Age: 49 years Sex: Male : 1975 Associated Diagnoses: None Author: EMANUEL PRUITT Preoperative Information Time of last food or liquid consumption: 05/22/2024 00:00:00 Anesthesia history Patient's history: negative. Family's history: negative. Health Status Allergies: Allergic Reactions (Selected) Severity Not Documented Penicillin- Hives., Allergies (1) ActiveSeverityReaction penicillinHives Current medications: (Selected) Inpatient Medications Ordered LR 1000 mL: 125 mL/hr, Intravenous clindamycin 900 mg/50 mL-D5% intravenous solution: 900 mg, 50 mL, 100 mL/hr, IV Piggyback, PREOP pharm Documented Medications Documented Alive Men's Ultra Multivitamin oral tablet: 1 tab(s), Oral, qDay, 0 Refill(s) Candice 24 Hour Allergy oral tablet: 180 mg, 1 tab(s), Oral, Daily LORazepam 1 mg oral tablet: 1 mg, 1 tab(s), Oral, q12h, PRN: as needed for anxiety, 0 Refill(s) Tylenol Extra Strength 500 mg oral tablet: 1,000 mg, 2 tab(s), Oral, BID, PRN: as needed for pain acetaminophen-oxyCODONE 325 mg-5 mg oral tablet: 1 tab(s), Oral, q6h, PRN: for pain, 0 Refill(s) citalopram 20 mg oral tablet: 20 mg, 1 tab(s), Oral, qHS, 0 Refill(s) citalopram 40 mg oral tablet: 40 mg, 1 tab(s), Oral, qHS, 0 Refill(s) oxybutynin 15 mg/24 hr oral tablet, extended release: 15 mg, 1 tab(s), Oral, qDay, 30 tab(s), 0 Refill(s), Medications (2) Active Scheduled: (1) clindamycin PMX 900 mg 50 mL, IV Piggyback, PREOP pharm Continuous: (1) Lactated Ringers Infusion 1000 mL 1,000 mL, Intravenous, 125 mL/hr PRN: (0) Problem list: Active Problems (4) Anxiety and depression OAB (overactive bladder) Sleep apnea Urinary frequency Histories Past Medical History: No active or resolved past medical history items have been selected or recorded. Family History: Cancer Father Procedure history: Tonsillectomy ([id number]). Colonoscopy ([id number]). Social History: Social & Psychosocial Habits Alcohol 05/22/2024 Use: Past Stopped at age: 44 Years Substance Abuse 05/22/2024 Use: Never Tobacco 05/22/2024 Tobacco Use: Never (less than 100 in l Home/Environment 05/22/2024 Living situation: Home/Independent Domestic Concerns None Primary Internet Systems Administrator: Self Current Home Treatments None Special Services and Community Resources None Spouse Name Frances Marital Status of Patient if Patient Independent Adult: Nutrition/Health 05/22/2024 Type of diet: Regular Appetite Good Eating Difficulties None Physical Examination Vital Signs 05/22/2024 7:50 EDT Heart Rate Monitored 86 bpm bpm Respiratory Rate - Anes 7 br/min br/min Systolic Blood Pressure Non-Invasive 101 mmHg mmHg Diastolic Blood Pressure Non-Invasive 70 mmHg mmHg 05/22/2024 7:45 EDT Heart Rate Monitored 91 bpm bpm Respiratory Rate - Anes 13 br/min br/min Systolic Blood Pressure Non-Invasive 106 mmHg mmHg Diastolic Blood Pressure Non-Invasive 70 mmHg mmHg 05/22/2024 7:40 EDT Heart Rate Monitored 92 bpm bpm Respiratory Rate - Anes 13 br/min br/min Systolic Blood Pressure Non-Invasive 113 mmHg mmHg Diastolic Blood Pressure Non-Invasive 88 mmHg mmHg 05/22/2024 7:35 EDT Heart Rate Monitored 86 bpm bpm Respiratory Rate - Anes 5 br/min br/min Systolic Blood Pressure Non-Invasive 123 mmHg mmHg Diastolic Blood Pressure Non-Invasive 79 mmHg mmHg 05/22/2024 6:55 EDT Temperature Temporal Artery 36.2 DegC Peripheral Pulse Rate 94 bpm Respiratory Rate 18 br/min Systolic Blood Pressure Non-Invasive 124 mmHg Diastolic Blood Pressure Non-Invasive 96 mmHg HI 05/21/2024 10:21 EDT Peripheral Pulse Rate 108 bpm HI Respiratory Rate 20 br/min Systolic Blood Pressure Non-Invasive 128 mmHg Diastolic Blood Pressure Non-Invasive 87 mmHg Blood Pressure Location Right arm Blood Pressure Cuff Size Large Vital Signs (last 24 hrs) Last Charted Temp Kijijwou05.2 DegC (MAY 22 06:55) Heart Rate Belmhpwpj31 bpm (MAY 22 07:50) CVF774 mmHg (MAY 22 07:50) DBP70 mmHg (MAY 22 07:50) Measurements from flowsheet : Measurements 05/22/2024 6:55 EDT Height 180 cm Admission Weight 136.4 kg Kelliher Body Weight 74.99 kg Admission Body Mass Index 42.1 m2 05/21/2024 10:21 EDT Height 180.3 cm Admission Weight 136.4 kg Weight Method Stated Kelliher Body Weight 75.26 kg Body Mass Index 41.96 kg/m2 Pain assessment: Pain Assessment 05/22/2024 6:55 EDT Primary Pain Location Foot Primary Pain Laterality Left Primary Pain Intensity 3 Pain Scale Type 0-10 Pain scale . General: Alert and oriented. Airway: Normal temporomandibular joint mobility, Normal mouth. Mallampati classification: III (soft palate, base of uvula visible). Dentition Evaluation: Denies loose/chipped teeth. Respiratory: Respirations are non-labored. Cardiovascular: Normal rate. Neurologic: Alert, Oriented. Review / Management Results review: No qualifying data available , Lab results 05/22/2024 7:50 EDT Heart Rate Monitored 86 bpm bpm Respiratory Rate - Anes 7 br/min br/min Systolic Blood Pressure Non-Invasive 101 mmHg mmHg Diastolic Blood Pressure Non-Invasive 70 mmHg mmHg Oxygen Saturation 94 % % 05/22/2024 7:46 EDT SN - Cul - Culture Type No Specimen per Surgeon 05/22/2024 7:45 EDT SN - AZ - Medication MARCAINE BUPIVACAINE 0.5% 30ML SN - AZ - Route of Administration Local SN - AZ - By (Single) SN - AZ - By (Single) SN - AZ - Time Administered 05/22/2024 7:41 05/22/2024 7:45 EDT Heart Rate Monitored 91 bpm bpm Respiratory Rate - Anes 13 br/min br/min Systolic Blood Pressure Non-Invasive 106 mmHg mmHg Diastolic Blood Pressure Non-Invasive 70 mmHg mmHg Oxygen Saturation 96 % % Set Rate Anes 13 br/min br/min 05/22/2024 7:40 EDT Heart Rate Monitored 92 bpm bpm Respiratory Rate - Anes 13 br/min br/min Systolic Blood Pressure Non-Invasive 113 mmHg mmHg Diastolic Blood Pressure Non-Invasive 88 mmHg mmHg Oxygen Saturation 97 % % Set Rate Anes 13 br/min br/min 05/22/2024 7:35 EDT Heart Rate Monitored 86 bpm bpm Respiratory Rate - Anes 5 br/min br/min Systolic Blood Pressure Non-Invasive 123 mmHg mmHg Diastolic Blood Pressure Non-Invasive 79 mmHg mmHg Oxygen Saturation 99 % % 05/22/2024 7:26 EDT SN - CAt - Case Attendee SN - CAt - Case Attendee SN - CAt - Role Performed Postal Mail Carrier 05/22/2024 7:25 EDT SN - XI - X-Ray Type C-Arm 05/22/2024 7:24 EDT SN - PP - Body Position Supine Standard Intra-op 05/22/2024 7:24 EDT SN - SP - Prep Agents Chloraprep SN - SP - HR - Method Clipped 05/22/2024 7:23 EDT SN - PTCare - Anti-thromboembolism Nahed Sequential Compression Device (SCD) 05/22/2024 7:12 EDT SN - CAt - Case Attendee SN - CAt - Case Attendee SN - CAt - Case Attendee SN - CAt - Case Attendee SN - CAt - Case Attendee SN - CAt - Case Attendee SN - CAt - Case Attendee SN - CAt - Case Attendee SN - CAt - Role Performed Automotive Service Assistant 1 SN - CAt - Role Performed WELL DRILLER HELPER SN - CAt - Role Performed Scrub 1 SN - CAt - Role Performed Health Underwriter 1 05/22/2024 7:11 EDT SN - GCD - Post-operative Diagnosis LIS FRANCS DISLOCATION, LEFT FOOT SN - GCD - Case Level Level 4 05/22/2024 7:10 EDT SN - Assess - LOC Alert, Awake SN - Assess - Orientation Oriented X 3 SN - Assess - Post-op Skin Integrity Intact/Dry 05/22/2024 7:09 EDT SN - CAt - Case Attendee SN - CAt - Case Attendee SN - CAt - Role Performed Primary Surgeon 05/22/2024 7:09 EDT SN - Proc - Anesthesia Type General SN - Proc - Actual Procedure OPEN REDUCTION INTERNAL FIXATION LIS FRANCS DISLOCATION, LEFT FOOT 05/22/2024 7:09 EDT SN - Preop - CTm Pt in SDS Room 05/22/2024 6:35 SN - Preop - CTm Pt Ready for OR/Proced 05/22/2024 7:10 05/22/2024 7:05 EDT Individuals Taught Patient, Spouse Learning Readiness Willing to learn Barriers to Learning None evident Teaching Method Explanation Pre Procedure/Surgery Education Appropriate expectations, 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 Procedure/Surgical Teaching Evaluation Verbalizes/Nonverbally indicates understanding 05/22/2024 7:02 EDT Lactated Ringers Injection Begin Bag 1,000 mL mL 05/22/2024 7:00 EDT IV Present Present Antecubital Right 05/22/2024 20 gauge Peripheral IV Activity: Insert new site Peripheral IV Dressing Condition: Clean, Dry, Intact Peripheral IV Dressing Activity: Applied Peripheral IV Line Status/Patency: Flushes easily Peripheral IV Line Care: Secured with tape Peripheral IV Site Condition: No complications Peripheral IV Equipment: Extension set Peripheral IV Number of Attempts: 2 Allergies Yes Anesthesia Extension Set Applied Yes Consent Form Signed Yes Patient Dressed In Hospital gown Pre-op Preparation Glasses removed CHG Preoperative Wash/Wipe Night before procedure, Day of procedure Preop Nasal Swab Povidone-Iodine CHG Skin Prep Completed for Eligible Surgery History & Physical On Chart Yes NPO Status Maintained Allergy Band on and Verified Yes Patient ID Band on and Verified Yes Implants Verified No Pacemaker/AICD Verified No Site Verified by Patient/Family Yes Blood Consent Signed Yes Last Fluid Intake 05/21/2024 21:00 Last Food Intake 05/21/2024 21:00 Last Void 05/22/2024 5:30 05/22/2024 6:55 EDT Height 180 cm Admission Weight 136.4 kg Kelliher Body Weight 74.99 kg Admission Body Mass Index 42.1 m2 Temperature Temporal Artery 36.2 DegC Peripheral Pulse Rate 94 bpm Respiratory Rate 18 br/min Systolic Blood Pressure Non-Invasive 124 mmHg Diastolic Blood Pressure Non-Invasive 96 mmHg HI Primary Pain Location Foot Primary Pain Laterality Left Primary Pain Intensity 3 Pain Scale Type 0-10 Pain scale Heart Rhythm Regular Dorsalis Pedis Pulse, Left 1+ Thready Dorsalis Pedis Pulse, Right 1+ Thready Respirations Unlabored Respiratory Pattern Regular All Lobes Breath Sounds Diminished Oxygen Therapy Room air Oxygen Saturation 96 % Abdomen Description Semi-firm, Rounded Bowel Sounds All Quadrants Hypoactive Urinary Elimination Voiding, no difficulties All Extremity Description [place] Skin Description Normal for ethnicity Characteristics of Speech Clear Level of Consciousness Alert Affect/Behavior Appropriate, Calm, Cooperative Orientation Oriented x 4 Standard Safety ID band on, Visitor at bedside, Safety level maintained 05/22/2024 6:45 EDT Designated Person #1 We May Share RIGO Mead [phone] Designated Person #1 Relationship Spouse Privacy Restrictions Requested None Status N/A Sensory Deficits None Diagnosed With Sleep Apnea Yes Advanced Directives No - refuses information Infectious Disease Symptoms Patient states no symptoms Infectious Disease Recent Exposure No Alcohol and Drug Use No Employee of Institutional Living No Health Care Employee No History of Exposure to TB No History of Positive Chest X-Ray for TB No History of Positive TB Skin Test No Homeless No Known Immunosuppression No Recent Immigrant No Resident of Institutional Living No Bloody Sputum No Fatigue No Fever No Loss of Appetite No Night Sweats No Persistent Cough > 3 Weeks No Weight Loss No Pre-Op Patient Education NPO after midnight, No jewelry, Responsible Green Party, Aware of surgery location, Pre-op education done, 1 bottle CHG wash with instructions given, No ordered medications, SSI prevention handout given SN - Preprocedure Comments Spoke with patient, Verbalizes/Nonverbally indicates understanding Anesthesia Evaluation Date/Time 05/21/2024 10:35 Anesthesia Evaluation Performed By YNES PRICE APRN-WELL DRILLER HELPER Anesthesia Evaluation Result Approved Barriers to Learning None evident Teaching Method Explanation, Printed materials Preferred Spoken Language Colombian Preferred Written Language Colombian Teaching Evaluation Verbalizes/Nonverbally indicates understanding Safety Brochure Information Reviewed Unable to complete Hector Fung Video Viewed No Information Given by Patient Patient's Current Physicians Patient's Current Physicians Discharge To, Anticipated Home independently Prev Test Positive/Diagnosis w/COVID-19 No Current Quarantine/Isolated any Illness No Any Contact with Sick Animals/Birds No Traveled Anywhere in Last 30 Days No Lost Weight Unintentionally Recently No Eat Poorly Due to Decreased Appetite No Total MST Score 0 N/A Personal Devices, Patient Valuables Glasses Anesthesia/Transfusions Prior anesthesia Admission Note-Nursing Same Day Patient History 05/22/2024 6:12 EDT Jose KURTZ 05/21/2024 10:21 EDT Designated Person #1 We May Share RIGO Mead [phone] Designated Person #1 Relationship Spouse Privacy Restrictions Requested None Height 180.3 cm Admission Weight 136.4 kg Weight Method Stated Kelliher Body Weight 75.26 kg Body Mass Index 41.96 kg/m2 Peripheral Pulse Rate 108 bpm HI Respiratory Rate 20 br/min Systolic Blood Pressure Non-Invasive 128 mmHg Diastolic Blood Pressure Non-Invasive 87 mmHg Blood Pressure Location Right arm Blood Pressure Cuff Size Large Oxygen Saturation 94 % Status N/A Sensory Deficits None Diagnosed With Sleep Apnea Yes Advanced Directives No - refuses information Infectious Disease Symptoms Patient states no symptoms Infectious Disease Recent Exposure No Alcohol and Drug Use No Employee of Institutional Living No Health Care Employee No History of Exposure to TB No History of Positive Chest X-Ray for TB No History of Positive TB Skin Test No Homeless No Known Immunosuppression No Recent Immigrant No Resident of Institutional Living No Bloody Sputum No Fatigue No Fever No Loss of Appetite No Night Sweats No Persistent Cough > 3 Weeks No Weight Loss No Pre-Op Patient Education NPO after midnight, No jewelry, Responsible Green Party, Aware of surgery location, Pre-op education done, 1 bottle CHG wash with instructions given, No ordered medications, SSI prevention handout given SN - Preprocedure Comments Spoke with patient, Verbalizes/Nonverbally indicates understanding Anesthesia Evaluation Date/Time 05/21/2024 10:35 Anesthesia Evaluation Performed By YNES PRICE Anesthesia Evaluation Result Approved Barriers to Learning None evident Teaching Method Explanation, Printed materials Preferred Spoken Language Colombian Preferred Written Language Colombian Information Given by Patient Patient's Current Physicians Patient's Current Physicians Discharge To, Anticipated Home independently Prev Test Positive/Diagnosis w/COVID-19 Yes Previous COVID-19 Positive Date 2022 Current Quarantine/Isolated any Illness No Any Contact with Sick Animals/Birds No Traveled Anywhere in Last 30 Days Yes Travel Where Within [place] Lost Weight Unintentionally Recently No Eat Poorly Due to Decreased Appetite No Total MST Score 0 N/A Personal Devices, Patient Valuables Contact lenses, Glasses Anesthesia/Transfusions Prior anesthesia Admission Note-Nursing Patient History PreTest . Assessment and Plan [place] [employer] Anesthesiologists (ASA) physical status classification: Class III. Anesthetic Preoperative Plan Anesthetic technique: General. Informed consent: signed by patient. Digitally Signed by EMANUEL PRUITT on 05/22/2024 07:58 AM [facility] 05-14-2024 History of Present illness Narrative Radiology Service Progress Note PATIENT NAME: Mindi Mead DATE OF SERVICE: May 14, 2024 TIME: 9:05 AM PATIENT IDENTITY VERIFICATION COMPLETED USING TWO (2) IDENTIFIERS: Name and Date of confirmed by patient verbally. FALL SCREENING: Has the patient had 2 falls in the last year or 1 fall with injury or currently using an Ambulatory Assistive Device (Walker, Cane, Wheelchair, Crutches, etc.)? Yes, Patient High Risk for Falls What interventions were put in place to prevent falls during this visit? Instructed Patient to Call for Help if Needed, Offered Assistance with Transfers/Clothing, and Increased Observations by Caregivers PATIENT GENDER DATA: Male PATIENT RELEVANT IMPLANT DATA REVIEWED: Yes PATIENT PRESENTS WITH AN IMPLANTABLE OR ATTACHED MANAGER DATABASE: No RADIOLOGY DEPARTMENT: General X-ray: Exam(s) Completed: Lower Extremity X-Ray(s): Foot, Left PERIPHERAL IV DATA: Not applicable SIGNED BY: RT Steven(R) May 14, 2024 9:05 AM documented in this encounter [facility] 05-14-2024 Note HNO ID: [id number] Author: RUTH ANN GALE RT(R) Service: Radiology Author Type: Technologist Type: Progress Notes Filed: 05/14/2024 09:14 Note Text: Radiology Service Progress Note PATIENT NAME: Mindi Mead DATE OF SERVICE: May 14, 2024 TIME: 9:05 AM PATIENT IDENTITY VERIFICATION COMPLETED USING TWO (2) IDENTIFIERS: Name and Date of confirmed by patient verbally. FALL SCREENING: Has the patient had 2 falls in the last year or 1 fall with injury or currently using an Ambulatory Assistive Device (Walker, Cane, Wheelchair, Crutches, etc.)? Yes, Patient High Risk for Falls What interventions were put in place to prevent falls during this visit? Instructed Patient to Call for Help if Needed, Offered Assistance with Transfers/Clothing, and Increased Observations by Caregivers PATIENT GENDER DATA: Male PATIENT RELEVANT IMPLANT DATA REVIEWED: Yes PATIENT PRESENTS WITH AN IMPLANTABLE OR ATTACHED MANAGER DATABASE: No RADIOLOGY DEPARTMENT: General X-ray: Exam(s) Completed: Lower Extremity X-Ray(s): Foot, Left PERIPHERAL IV DATA: Not applicable SIGNED BY: RT Steven(R) May 14, 2024 9:05 AM [facility] 05-14-2024 Note HNO ID: [id number] Author: AMBIKA ACHARYA APRN.ELIGIBILITY SPECIALIST Service: ? Author Type: Nurse Practitioner Type: Progress Notes Filed: 05/14/2024 10:15 Note Text: Subjective Complaints of left foot pain and swelling. Patient says about 5 days ago he was hiking and fell. Patient has been using crutches. Patient says he stands for his job so he would like to get it checked out. Patient denies any numbness tingling or loss of feeling. The history is provided by the patient. No mechanism inspector was used. Pain (foot) Review of Systems Constitutional: Negative. Skin: Negative. Objective Physical Exam Constitutional: Appearance: Normal appearance. Pulmonary: Effort: Pulmonary effort is normal. Musculoskeletal: Feet: Feet: Comments: No significant bruising in the areas marked above and purple. Patient has moderate swelling throughout the entire foot and ankle. Patient has normal range of motion in the ankle and no tenderness when palpated. Patient is more tender in the areas that are bruised. Neurological: Mental Status: He is alert. No past medical history on file. PAST SURGICAL HISTORY Procedure Laterality Date TONSILLECTOMY HX ALLERGIES Penicillins MEDICATIONS citalopram (CELEXA) 40 mg tablet take 1 tablet by mouth once daily at night oxybutynin ER (DITROPAN XL) 15 mg 24 hr Extended Rel Tab Take 15 mg by mouth once daily. multivit-min/ferrous fumarate (MULTI VITAMIN ORAL) Take by mouth. predniSONE (DELTASONE) 10 mg tablet Take 4 tabs daily for 3 days, then 2 tabs daily for 3 days, then 1 tab daily for 3 days with food. (Patient not taking: Reported on 05/14/2024) cyclobenzaprine (FLEXERIL) 10 mg tablet Take 1 tablet by mouth three times a day as needed for muscle spasm. (Patient not taking: Reported on 05/14/2024) lisinopril (ZESTRIL, PRINIVIL) 5 mg tablet Take 5 mg by mouth once daily. (Patient not taking: Reported on 02/15/2021 ) famotidine (PEPCID) 20 mg tablet Take 20 mg by mouth twice daily. (Patient not taking: Reported on 05/14/2024) fexofenadine HCl (CANDICE ORAL) Take by mouth. (Patient not taking: Reported on 05/14/2024) Chlorhexidine Gluconate (PERIDEX) 0.12 % solution Use 15 mL as instructed twice daily. Rinse around mouth for 30 seconds then expectorate (Patient not taking: Reported on 05/25/2021 ) naproxen (NAPROSYN) 500 mg tablet Take 1 tablet by mouth twice daily as needed (pain/inflammation, take with food.). (Patient not taking: Reported on 05/25/2021) fluticasone (FLONASE) 50 mcg/actuation nasal spray Use 2 Sprays in each nostril once daily. Rinse mouth after use. (Patient not taking: Reported on 02/15/2021) benzonatate (TESSALON PERLE) 100 mg capsule Take 2 capsules by mouth three times daily as needed. (Patient not taking: Reported on 03/02/2019) Fcjnyewfvncioua-Pbsrgjegc-CG (BROMFED DM) 2-30-10 mg/5 mL syrup Take 10 mL by mouth four times daily as needed. (Patient not taking: Reported on 09/07/2018) albuterol HFA (VENTOLIN HFA) 90 mcg/actuation inhaler Inhale 2 Puffs as instructed every 4 hours as needed for Wheezing/Shortness of Breath. (Patient not taking: Reported on 03/02/2019) triamcinolone acetonide (KENALOG) 0.1 % cream Apply 1 application to affected area twice daily. (Patient not taking: Reported on 05/27/2018) sertraline (ZOLOFT) 50 mg tablet Take 1 tablet by mouth once daily. (Patient not taking: Reported on 05/27/2018) LORazepam (ATIVAN) 0.5 mg tab Take 0.5 tablets by mouth once daily as needed. (Patient not taking: Reported on 05/27/2018) FAMILY HISTORY Problem Relation Age of Onset Arthritis Mother None Father None Sister Social History Tobacco Use Smoking status: Never Smokeless tobacco: Never Substance Use Topics Alcohol use: No Drug use: No ASSESSMENT/PLAN: 1. Pain - ICD9: 780.96, ICD10: R52 (primary diagnosis) - XR FOOT GENERAL 3V AP/LAT/OBL LEFT * * * * Physician Interpretation * * * * EXAMINATION: XR FOOT 3V AP/LAT/OBL LT PATIENT/TECHNOLOGIST PROVIDED HISTORY: Dorsal left forefoot and midfoot pain along the 1st metatarsal but spreads through out the foot following a fall 4 days ago. CLINICAL INFORMATION: 49 years old Male with Pain TECHNIQUE: XR FOOT 3V AP/LAT/OBL LT Laterality: LEFT Number of different views (projections): 3 COMPARISON: None RESULT: Soft tissue swelling dorsum of the forefoot. Small ossific densities in the region of the Lisfranc ligament with mild diastases between the base of the 1st and 2nd metatarsal and mild widening C1-M2 distance suspicious for Lisfranc injury. No subluxation or dislocation. Joint spaces are maintained with scattered small marginal osteophytes. Moderate size posterior calcaneal spur. IMPRESSION IMPRESSION: Findings suspicious for Lisfranc injury. Chore Tender: LEBRON Transcribe Date/Time: May 14 2024 9:22A Dictated by : JESSICA GRAHAM DO 2. Fracture - ICD9: 829.0, ICD10: T14.8XXA Crutches. Patient was placed in a walking b (more content not included)... [facility] 05-14-2024 History of Present illness Narrative Images from the original note were not included. Subjective Complaints of left foot pain and swelling. Patient says about 5 days ago he was hiking and fell. Patient has been using crutches. Patient says he stands for his job so he would like to get it checked out. Patient denies any numbness tingling or loss of feeling. The history is provided by the patient. No mechanism inspector was used. Pain (foot) Review of Systems Constitutional: Negative. Skin: Negative. Objective Physical Exam Constitutional: Appearance: Normal appearance. Pulmonary: Effort: Pulmonary effort is normal. Musculoskeletal: Feet: Feet: Comments: No significant bruising in the areas marked above and purple. Patient has moderate swelling throughout the entire foot and ankle. Patient has normal range of motion in the ankle and no tenderness when palpated. Patient is more tender in the areas that are bruised. Neurological: Mental Status: He is alert. No past medical history on file. PAST SURGICAL HISTORY Procedure Laterality Date TONSILLECTOMY HX ALLERGIES Penicillins MEDICATIONS citalopram (CELEXA) 40 mg tablet take 1 tablet by mouth once daily at night oxybutynin ER (DITROPAN XL) 15 mg 24 hr Extended Rel Tab Take 15 mg by mouth once daily. multivit-min/ferrous fumarate (MULTI VITAMIN ORAL) Take by mouth. predniSONE (DELTASONE) 10 mg tablet Take 4 tabs daily for 3 days, then 2 tabs daily for 3 days, then 1 tab daily for 3 days with food. (Patient not taking: Reported on 05/14/2024) cyclobenzaprine (FLEXERIL) 10 mg tablet Take 1 tablet by mouth three times a day as needed for muscle spasm. (Patient not taking: Reported on 05/14/2024) lisinopril (ZESTRIL, PRINIVIL) 5 mg tablet Take 5 mg by mouth once daily. (Patient not taking: Reported on 02/15/2021 ) famotidine (PEPCID) 20 mg tablet Take 20 mg by mouth twice daily. (Patient not taking: Reported on 05/14/2024) fexofenadine HCl (CANDICE ORAL) Take by mouth. (Patient not taking: Reported on 05/14/2024) Chlorhexidine Gluconate (PERIDEX) 0.12 % solution Use 15 mL as instructed twice daily. Rinse around mouth for 30 seconds then expectorate (Patient not taking: Reported on 05/25/2021 ) naproxen (NAPROSYN) 500 mg tablet Take 1 tablet by mouth twice daily as needed (pain/inflammation, take with food.). (Patient not taking: Reported on 05/25/2021) fluticasone (FLONASE) 50 mcg/actuation nasal spray Use 2 Sprays in each nostril once daily. Rinse mouth after use. (Patient not taking: Reported on 02/15/2021) benzonatate (TESSALON PERLE) 100 mg capsule Take 2 capsules by mouth three times daily as needed. (Patient not taking: Reported on 03/02/2019) Smpjecmiptwsbxl-Dkxfmugkz-JG (BROMFED DM) 2-30-10 mg/5 mL syrup Take 10 mL by mouth four times daily as needed. (Patient not taking: Reported on 09/07/2018) albuterol HFA (VENTOLIN HFA) 90 mcg/actuation inhaler Inhale 2 Puffs as instructed every 4 hours as needed for Wheezing/Shortness of Breath. (Patient not taking: Reported on 03/02/2019) triamcinolone acetonide (KENALOG) 0.1 % cream Apply 1 application to affected area twice daily. (Patient not taking: Reported on 05/27/2018) sertraline (ZOLOFT) 50 mg tablet Take 1 tablet by mouth once daily. (Patient not taking: Reported on 05/27/2018) LORazepam (ATIVAN) 0.5 mg tab Take 0.5 tablets by mouth once daily as needed. (Patient not taking: Reported on 05/27/2018) FAMILY HISTORY Problem Relation Age of Onset Arthritis Mother None Father None Sister Social History Tobacco Use Smoking status: Never Smokeless tobacco: Never Substance Use Topics Alcohol use: No Drug use: No ASSESSMENT/PLAN: 1. Pain - ICD9: 780.96, ICD10: R52 (primary diagnosis) - XR FOOT GENERAL 3V AP/LAT/OBL LEFT * * * * Physician Interpretation * * * * EXAMINATION: XR FOOT 3V AP/LAT/OBL LT PATIENT/TECHNOLOGIST PROVIDED HISTORY: Dorsal left forefoot and midfoot pain along the 1st metatarsal but spreads through out the foot following a fall 4 days ago. CLINICAL INFORMATION: 49 years old Male with Pain TECHNIQUE: XR FOOT 3V AP/LAT/OBL LT Laterality: LEFT Number of different views (projections): 3 COMPARISON: None RESULT: Soft tissue swelling dorsum of the forefoot. Small ossific densities in the region of the Lisfranc ligament with mild diastases between the base of the 1st and 2nd metatarsal and mild widening C1-M2 distance suspicious for Lisfranc injury. No subluxation or dislocation. Joint spaces are maintained with scattered small marginal osteophytes. Moderate size posterior calcaneal spur. IMPRESSION IMPRESSION: Findings suspicious for Lisfranc injury. Chore Tender: LEBRON Transcribe Date/Time: May 14 2024 9:22A Dictated by : JESSICA GRAHAM DO 2. Fracture - ICD9: 829.0, ICD10: T14.8XXA Crutches. Patient was placed in a walking boot. Charged to [employer]. Patient will stay nonweightbearing till he follows up with orthopedics. Did get him an appointment with podiatry for Saturday. Patient was okay with this care plan. Ambika Acharya APRN.CECILIA documented in this encounter [facility] 09-23-2023 Note HNO ID: [id number] Author: JAVON NEWTON RDMS Service: ? Author Type: Mat Making Machine Tender Type: Progress Notes Filed: 09/23/2023 14:51 Note [...] PATIENT PRESENTS WITH AN IMPLANTABLE OR ATTACHED MANAGER DATABASE: No RADIOLOGY DEPARTMENT: Ultrasound PERIPHERAL IV DATA: Not applicable SIGNED BY: Javon Newton RDMS RVT September 23, 2023 2:50 PM [facility] 09-23-2023 Note HNO ID: [id number] Author: JAVON CAMERON APRN.ELIGIBILITY SPECIALIST Service: ? Author Type: Nurse Practitioner Type: Progress Notes Filed: 09/23/2023 15:36 Note Text: This note was created using NoteWriter. Subjective Mindi Mead is a 48 year [...] mg by mouth twice daily. fexofenadine HCl (CANDICE ORAL) Take by mouth. predniSONE (DELTASONE) 10 [...] (Patient not taking: Reported on 03/02/2019 ) Ptmuitlyevylkwz-Lomuhfmfz-JR (BROMFED DM) 2-30-10 mg/5 mL syrup Take [...] of motion. Right (more content not included)... [facility] Evaluation + Plan note Future Appointments [facility] Evaluation note Diagnosis Pain- Primary Generalized pain Fracture Closed fracture of unspecified bone Pain Generalized pain [facility] Pain Generalized pain documented in this encounter [facility] course Narrative No data available for this section [facility] Hospital Discharge instructions No data available for this section [facility] Progress note No data available for this section [facility] Reason for referral (narrative)* Diagnostic Procedure Only (Urgent) - Closed Specialty Diagnoses / Procedures Referred By Contac t Referred To Contact XR IMAGING Diagnoses Pain Procedures XR FOOT GENERAL 3V AP/LAT/OBL LEFT RADEX FOOT COMPLETE MINIMUM 3 VIEWS Ambika Acharya APRN.ELIGIBILITY SPECIALIST [address] [place] [address] [place] [id number] Referral ID Status Reason Start Date Expiration Date V isits Requested Visits Authorized [id number] Closed Auto-Generate d Referral 05/14/2024 06/13/[address] [facility] for referral (narrative)* Diagnostic Procedure Only (Urgent) - Closed Specialty Diagnoses / Procedures Referred By Contac t Referred To Contact XR IMAGING Diagnoses Pain Procedures XR FOOT GENERAL 3V AP/LAT/OBL LEFT RADEX FOOT COMPLETE MINIMUM 3 VIEWS Ambika Acharya APRN.ELIGIBILITY SPECIALIST [address] [place] [address] [place] [address] Referral ID Status Reason Start Date Expiration Date V isits Requested Visits Authorized [id number] Closed Auto-Generate d Referral 05/14/2024 06/13/[address] [facility] for visit Narrative* Diagnostic Procedure Only (Urgent) - Closed Specialty Diagnoses / Procedures Referred By Contac t Referred To Contact XR IMAGING Diagnoses Pain Procedures XR FOOT GENERAL 3V AP/LAT/OBL LEFT RADEX FOOT COMPLETE MINIMUM 3 VIEWS Ambika Acharya APRN.ELIGIBILITY SPECIALIST [address] [place] [address] [place] [address] Referral ID Status Reason Start Date Expiration Date V isits Requested Visits Authorized [id number] Closed Auto-Generate d Referral 05/14/2024 06/13/2025 1 1 [facility] Summary Purpose Family History No Family History Records Found No data available for this section No data available for this section No Family History Records Found Advance Directives No Advanced Directives Records FoundNo Advanced Directives Records Found Additional Source Comments Source Comments (unrecognize d section and content) In the event this informatio n is protected by the Federal Confidentiality of Alcohol and Drug Abuse Patient Records regulations: The Federal rules restrict any use of the information to criminally investigate or prosecute any alcohol or drug abuse patient.[facility] the event this information is protected by the Federal Confidentiality of Alcohol and Drug Abuse Patient Records regulations: The Federal rules restrict any use of the information to criminally investigate or prosecute any alcohol or drug abuse patient.[facility] Reason for Visit (unrecogniz ed section and content) Reason Comments Pain (foot) L foot injury x5 day s, bruised and swollen Care Teams (unrecognized sec tion and content) Fashion Journalist Relationship Specialty Start Date End Date Marcella Franco DO [address] [place] [address] PCP - General Family Medicine 05/14/24 Fashion Journalist Relationship Specialty Start Date End Date Marcella Franco DO [address] [place] [address] PCP - General Family Medicine 05/14/24 (unrecognized sect ion and content) No Status Records FoundNo Status Records Found INFORMATION SOURCE (unrecogn ized section and content) DATE CREATED AUTHOR 05/16/2024 [facility] DATE CREATED AUTHOR 'S CRESCENCIO ATION 05/29/2024 [facility] FOR RECORDS PERTAINING TO PATIENTS WHO ARE [...] BE BASED ON THE PRIMARY CLINICAL RECORDS. [facility] [employer] [facility]. provides no warranty or guarantee of the accuracy or completeness of information in this document.
[2024-06-22 10:55] LABS: PSA,Total - Annual Screen 0.85 ng/mL (0.00-4.00)
== END | disposition home or self-care (01) ==
LOC: LAB 08:49
PROVIDERS: PCP Family Medicine; Referring Provider Urology; Visit Provider Urology
DX: Z12.5 Encounter for screening for malignant neoplasm of prostate (principal)
CPT/HCPCS: 36415; 84153; G0103